=== PATIENT | female | born 1940 | race Caucasian/White ===

== ENCOUNTER 2017-01-31 19:32 | Inpatient (IN) | payer MEDICARE, MEDICAID ==
--- NOTE | 2017-01-31 20:29 | C.PDOC ---
History Of Present Illness 76 y/o female presents to ED with worsening congestion and cough for 1 week. Patient is speaking in full sentences and denies fever, chest pain, sob, n/v/d or any other complaints at this time. Time Seen by Provider: 01/31/17 20:28 Chief Complaint (Nursing): Cough, Cold, Congestion History Per: Patient History/Exam Limitations: no limitations Onset/Duration Of Symptoms: Days Current Symptoms Are (Timing): Still Present Severity: Mild Pain Scale Rating Of: 2 Reports Recently: Treated By A Physician Recent travel outside of the [place] States: No Additional History Per: Patient, Family Past Medical History Reviewed: Historical Data, Nursing Documentation, Vital Signs Vital Signs: Last Vital Signs Temp 98.6 F 01/31/17 19:52 Pulse 87 01/31/17 19:52 Resp 20 01/31/17 19:52 BP 127/68 01/31/17 19:52 Pulse Ox 96 01/31/17 21:19 - Medical History PMH: Arthritis, Diabetes, Deep Vein Thrombosis, Hypothyroidism, Rheumatoid Arthritis Surgical History: No Surg Hx Family History: States: No Known Family Hx - Social History Hx Alcohol Use: No Hx Substance Use: No - Immunization History Hx Tetanus Toxoid Vaccination: Yes Hx Influenza Vaccination: Yes Hx Pneumococcal Vaccination: Yes Review Of Systems Constitutional: Negative for: Fever, Chills Eyes: Negative for: Redness Cardiovascular: Negative for: Chest Pain Respiratory: Positive for: Cough. Negative for: Shortness of Breath Gastrointestinal: Negative for: Nausea, Vomiting, Diarrhea Skin: Negative for: Rash Neurological: Negative for: Weakness Psych: Negative for: Anxiety Physical Exam - Physical Exam Appears: Non-toxic, No Acute Distress Skin: Warm, Dry, No Rash Head: Normacephalic Eye(s): bilateral: Normal Inspection Oral Mucosa: Moist Neck: Supple Chest: Symmetrical Cardiovascular: Rhythm Regular Respiratory: No Rales, Rhonchi (scattered), Wheezing (bilateral) Gastrointestinal/Abdominal: Soft, No Tenderness, No Guarding, No Rebound Back: No CVA Tenderness Extremity: No Tenderness Extremity: Bilateral: Atraumatic, Normal Color And Temperature Neurological/Psych: Oriented x3, Normal Speech, Normal Cognition Gait: Steady ED Course And Treatment - Laboratory Results Result Diagrams: 01/31/17 20:39 01/31/17 20:39 ECG: Interpreted By Me, Viewed By Me ECG Rhythm: Sinus Rhythm (78), Nonspecific Changes O2 Sat by Pulse Oximetry: 96 (RA) Pulse Ox Interpretation: Normal - Radiology CXR: Interpreted by Me, Viewed By Me CXR Interpretation: Yes: Infiltrates (lll), Other (mild chf). No: Fracture, Pnemothorax Disposition Discussed With DrSandra: Byron Alexander Comment: accepted the pt on his service and took over the care at 9:39 PM Doctor Will See Patient In The: Hospital Counseled Patient/Family Regarding: Studies Performed, Diagnosis - Disposition Disposition: HOSPITALIZED Disposition Time: 20:28 Condition: FAIR Forms: RE2 (Urdu) - POA Present On Arrival: Poor Glycemic Control - Clinical Impression Clinical Impression: Pneumonia - Scribe Statement The provider has reviewed the documentation as recorded by the Scribe Vinh Sewell All medical record entries made by the Scribe were at my direction and personally dictated by me. I have reviewed the chart and agree that the record accurately reflects my personal performance of the history, physical exam, medical decision making, and the department course for this patient. I have also personally directed, reviewed, and agree with the discharge instructions and disposition. Decision To Admit - Pt Status Changed To: Hospital Disposition Of: Observation - . Bed Request Type: Regular Patient Diagnosis: Pneumonia
[2017-01-31] MEDS ORDERED: Sodium Chloride 0.9% 1,000 ML IV ONE (20:31)
[2017-01-31 20:45] LABS: BASO # 0.1 K/uL (0.0-0.2); BASO % 0.7 % (0.0-2.0); EOS # 4.6 K/uL (0.0-0.7); EOS % 35.7 % (0.0-4.0); HEMATOCRIT 35.5 % (34.0-47.0); LYMPH # 1.6 K/uL (1.0-4.3); LYMPH % 12.4 % (20.0-40.0); MEAN CELL VOLUME 83.5 fL (81.0-99.0); MEAN CORPUSCULAR HEMOGLOBIN 26.6 pg (27.0-31.0); MEAN CORPUSCULAR HGB CONC 31.9 g/dL (33.0-37.0); MEAN PLATELET VOLUME 8.9 fL (7.2-11.7); MONO # 0.8 K/uL (0.0-0.8); MONO % 6.2 % (0.0-10.0); PLATELET COUNT 213 K/uL (130-400); RED CELL DISTRIBUTION WIDTH 15.1 % (11.5-14.5); WHITE BLOOD COUNT 12.9 K/uL (4.8-10.8)
[2017-01-31 20:49] LABS: VENOUS BLOOD GAS BASE EXCESS 0.5 mmol/L (0.0-2.0); VENOUS BLOOD GAS PCO2 44 mmHg (40-60); VENOUS BLOOD PH 7.38 (7.32-7.43)
[2017-01-31 20:51] LABS: CHLORIDE 101 mmol/L (98-107)
[2017-01-31 20:52] LABS: POTASSIUM 3.8 mmol/L (3.6-5.2); SODIUM 134 mmol/L (132-148)
[2017-01-31] MEDS ORDERED: Sodium Chloride 0.9% 1,000 ML ONE (20:52)
[2017-01-31] MEDS ORDERED: Albuterol-Ipratrop 3 mg / 0.5 (3 ml) UD ONE ×2 (20:53→21:21)
[2017-01-31 20:54] LABS: ALB/GLOB RATIO 1.3 (1.0-2.1); AST/SGOT 16 U/L (14-36); BILIRUBIN,TOTAL 0.5 mg/dL (0.2-1.3); BLOOD UREA NITROGEN 10 mg/dL (7-17); CARBON DIOXIDE 24 mmol/L (22-30); GFR AFRICAN-AMERICAN > 60; TOTAL PROTEIN 6.7 g/dL (6.3-8.3)
[2017-01-31 20:55] LABS: ALKALINE PHOSPHATASE 52 U/L (38-126); ALT/SGPT 26 U/L (9-52); CALCIUM 9.1 mg/dl (8.6-10.4); GLUCOSE,RANDOM 164 mg/dL (65-105)
[2017-01-31] MEDS: Albuterol-Ipratrop 3 mg / 0.5 (3 ml) UD IH SCH ×3 (21:00→21:31)
[2017-01-31 21:03] LABS: RBC URINE < 1 /hpf (0-3); URINE BACTERIA RARE (<OCC); URINE BILIRUBIN NEGATIVE (NEGATIVE); URINE BLOOD NEGATIVE (NEGATIVE); URINE COLOR Straw (YELLOW); URINE GLUCOSE (UA) NORMAL (Normal); URINE KETONE NEGATIVE (NEGATIVE); URINE LEUKOCYTE ESTERASE NEG Leu/uL (Negative); URINE PROTEIN NEGATIVE (NEGATIVE); URINE UROBILINOGEN NORMAL mg/dL (0.2-1.0)
[2017-01-31] MEDS ORDERED: Piperacillin/Tazobact 3.375 gm 100 ML IVPB STA (21:36)
[2017-01-31] MEDS ORDERED: Piperacillin/Tazobact 3.375 gm 100 ML IVPB ONE (21:49)
--- NOTE | 2017-01-31 23:00 | CP.PCM.HP ---
History of Present Illness - History of Present Illness History of Present Illness: CC: cough, SOB x 1 week 76 y/o [place] female chronically sick, home bound with h/o COPD, OA, DM who lives with son and needs home aide presents to ED with worsening congestion and cough for 1 week. Patient is speaking in full sentences and denies fever, chest pain, sob, n/v/d or any other complaints at this time. Present on Admission - Present on Admission Any Indicators Present on Admission: Yes History of DVT/PE: Yes History of Uncontrolled Diabetes: Yes Review of Systems - Review of Systems Systems not reviewed;Unavailable: Acuity of Condition - Constitutional Constitutional: Fatigue, Lethargy - EENT Eyes: absent: As Per HPI, Blind Spots, Blurred Vision, Change in Vision, Decreased Night Vision, Diplopia, Discharge, Dry Eye, Exophthalmos, Floaters, Irritation, Itchy Eyes, Loss of Peripheral Vision, Pain, Photophobia, Requires Corrective Lenses, Sees Flashes, Spots in Vision, Tunnel Vision, Other Visual Disturbances, Loss of Vision, Other Ears: absent: As Per HPI, Decreased Hearing, Ear Discharge, Ear Pain, Tinnitus, Abnormal Hearing, Disequilibrium, Dizziness, Other Nose/Mouth/Throat: absent: As Per HPI, Epistaxis, Nasal Congestion, Nasal Discharge, Nasal Obstruction, Nasal Trauma, Nose Pain, Post Nasal Drip, Sinus Pain, Sinus Pressure, Bleeding Gums, Change in Voice, Dental Pain, Dry Mouth, Dysphagia, Halitosis, Hoarsness, Lip Swelling, Mouth Lesions, Mouth Pain, Odynophagia, Sore Throat, Throat Swelling, Tongue Swelling, Facial Pain, Neck Pain, Neck Mass, Other - Cardiovascular Cardiovascular: absent: As Per HPI, Acrocyanosis, Chest Pain, Chest Pain at Rest , Chest Pain with Activity, Claudication, Diaphoresis, Dyspnea, Dyspnea on Exertion, Edema, Irregular Heart Rhythm, Pain Radiating to Arm/Neck/Jaw, Leg Edema, Leg Ulcers, Lightheadedness, Orthopnea, Palpitations, Paroxysmal Nocturnal Dyspnea, Pedal Edema, Radiating Pain, Rapid Heart Rate, Slow Heart Rate, Syncope, Other - Respiratory Respiratory: Cough, Dyspnea, Dyspnea on Exertion - Gastrointestinal Gastrointestinal: Abdominal Pain. absent: As Per HPI, Belching, Bloating, Change in Bowel Habits, Change in Stool Character, Coffee Ground Emesis, Constipation, Cramping, Diarrhea, Dyspepsia, Dysphagia, Early Satiety, Excessive Flatus, Fecal Incontinence, Heartburn, Hematemesis, Hematochezia, Loose Stools, Melena, Nausea, Odynophagia, Temesmus, Vomiting, Other - Genitourinary Genitourinary: Flank Pain. absent: As Per HPI, Change in Urinary Stream, Difficulty Urinating, Dysuria, Hematuria, Pyuria, Nocturia, Urinary Incontinence , Urinary Frequency, Urinary Hesitance, Urinary Urgency, Voiding Freq/Small Amts , Freq UTI, Hx Renal/Bladder Calculi, Hx /Renal Surgery, Bladder Distension, Other - Musculoskeletal Musculoskeletal: Back Pain, Limited Range of Motion, Muscle Weakness, Neck Pain , Numbness, Radiating Pain into Limb - Integumentary Integumentary: absent: As Per HPI, Acne, Alopecia, Bleeding Lesions, Change in Hair, Change in Nails, Change in Pigmentation, Changing Lesions, Dry Skin, Erythema, Furuncle, Hirsutism, Lesions, New Lesions, Non-Healing Lesions, Photosensitivity, Pruritus, Rash, Skin Pain, Skin Ulcer, Sores, Striae, Swelling , Unusual Bruising, Wounds, Jaundice, Other Past Patient History - Infectious Disease Hx of Infectious Diseases: None - Past Social History Smoking Status: Never Smoked - CARDIAC Hx Hypotension: Yes - NEUROLOGICAL Other/Comment: Pinched Nerve - ENDOCRINE/METABOLIC Hx Hypothyroidism: Yes - HEMATOLOGICAL/ONCOLOGICAL Other/Comment: ITP - MUSCULOSKELETAL/RHEUMATOLOGICAL Hx Arthritis: Yes Hx Rheumatoid Arthritis: Yes - PSYCHIATRIC Hx Substance Use: No - SURGICAL HISTORY Hx Cataract Extraction: Yes - ANESTHESIA Hx Anesthesia: Yes Hx Anesthesia Reactions: No Meds Allergies/Adverse Reactions: Allergies Allergy/AdvReac Type Severity Reaction Status Date / Time No Known Allergies Allergy Verified 01/19/16 19:13 Physical Exam - Constitutional Appears: No Acute Distress - Head Exam Head Exam: ATRAUMATIC, NORMAL INSPECTION, NORMOCEPHALIC - Eye Exam Eye Exam: EOMI, Normal appearance, PERRL Pupil Exam: NORMAL ACCOMODATION, PERRL - Neck Exam Neck exam: Positive for: Normal Inspection - Respiratory Exam Respiratory Exam: Accessory Muscle Use, Decreased Breath Sounds, Respiratory Distress - Cardiovascular Exam Cardiovascular Exam: REGULAR RHYTHM - GI/Abdominal Exam GI & Abdominal Exam: Normal Bowel Sounds, Soft. absent: Tenderness - Rectal Exam Rectal Exam: Deferred - Skin Additional comments: brisue in anticubal fossa right due to rcent venipuncture Results - Vital Signs Recent Vital Signs: Last Vital Signs Temp 98.6 F 01/31/17 19:52 Pulse 87 01/31/17 19:52 Resp 20 01/31/17 19:52 BP 127/68 01/31/17 19:52 Pulse Ox 96 01/31/17 21:41 - Labs Result Diagrams: 01/31/17 20:39 01/31/17 20:39 Labs: Laboratory Results - last 24 hr 01/31/17 01/31/17 01/31/17 20:39 20:39 20:40 WBC 12.9 H RBC 4.25 Hgb 11.3 Hct 35.5 MCV 83.5 MCH 26.6 L MCHC 31.9 L RDW 15.1 H Plt Count 213 MPV 8.9 Neut % (Auto) 45.0 L Lymph % (Auto) 12.4 L [place] % (Auto) 6.2 Eos % (Auto) 35.7 H Baso % (Auto) 0.7 Neut # 5.8 Lymph # 1.6 [place] # 0.8 Eos # 4.6 H Baso # 0.1 pO2 52 VBG pH 7.38 VBG pCO2 44 VBG HCO3 25.0 VBG Total CO2 27.4 VBG O2 Sat (Calc) 92.3 H VBG Base Excess 0.5 VBG Potassium 3.6 Glucose 181 H Lactate 1.7 Sodium 134 136.0 Potassium 3.8 Chloride 101 103.0 Carbon Dioxide 24 Anion Gap 13 BUN 10 Creatinine 0.5 L Est GFR ( Amer) > 60 Est GFR (Non-Af Amer) > 60 Random Glucose 164 H Calcium 9.1 Total Bilirubin 0.5 AST 16 ALT 26 Alkaline Phosphatase 52 Total Protein 6.7 Albumin 3.8 Globulin 2.9 Albumin/Globulin Ratio 1.3 Venous Blood Potassium 3.6 Urine Color Urine Clarity Urine pH Ur Specific [place] Urine Protein Urine Glucose (UA) Urine Ketones Urine Blood Urine Nitrate Urine Bilirubin Urine Urobilinogen Ur Leukocyte Esterase Urine RBC (Auto) Ur Squamous Epith Cells Urine Bacteria 01/31/17 20:48 WBC RBC Hgb Hct MCV MCH MCHC RDW Plt Count MPV Neut % (Auto) Lymph % (Auto) [place] % (Auto) Eos % (Auto) Baso % (Auto) Neut # Lymph # [place] # Eos # Baso # pO2 VBG pH VBG pCO2 VBG HCO3 VBG Total CO2 VBG O2 Sat (Calc) VBG Base Excess VBG Potassium Glucose Lactate Sodium Potassium Chloride Carbon Dioxide Anion Gap BUN Creatinine Est GFR ( Amer) Est GFR (Non-Af Amer) Random Glucose Calcium Total Bilirubin AST ALT Alkaline Phosphatase Total Protein Albumin Globulin Albumin/Globulin Ratio Venous Blood Potassium Urine Color Straw Urine Clarity Clear Urine pH 6.0 Ur Specific [place] 1.003 Urine Protein Negative Urine Glucose (UA) Normal Urine Ketones Negative Urine Blood Negative Urine Nitrate Negative Urine Bilirubin Negative Urine Urobilinogen Normal Ur Leukocyte Esterase Neg Urine RBC (Auto) < 1 Ur Squamous Epith Cells < 1 Urine Bacteria Rare Assessment & Plan (1) Bronchial asthma Assessment and Plan: excerberation of asthama Status: Acute (2) Diabetes Status: Acute (3) Joint pain Status: Acute (4) DVT (deep venous thrombosis) Status: Acute
[2017-01-31 23:19] LABS: EOSINOPHIL 23 % (0-4); NEUTROPHIL 50 % (50-75); TOTAL CELLS COUNTED 100
[2017-01-31 23:20] LABS: LARGE PLATELETS PRESENT; SMUDGE CELLS PRESENT
[2017-02-01] MEDS: Levothyroxine 125 MCG TAB PO SCH (06:40)
[2017-02-01 06:59] LABS: INR 2.7
[2017-02-01] MEDS ORDERED: Albuterol 0.083% Inhal Sol (2.5 mg/3 mL) UD ONE (07:55)
--- NOTE | 2017-02-01 08:43 | RAD ---
PROCEDURE: CHEST RADIOGRAPH, 1 VIEW HISTORY: Shortness of breath COMPARISON: None available. FINDINGS: LUNGS: The lungs are well inflated. There is bibasilar atelectasis. PLEURA: No pneumothorax or pleural fluid seen. CARDIOVASCULAR: Normal. OSSEOUS STRUCTURES: No significant abnormalities. VISUALIZED UPPER ABDOMEN: Normal. OTHER FINDINGS: None. IMPRESSION: No active pulmonary disease.
[2017-02-01] MEDS ORDERED: (Novolin R) Insulin Human Regular 100 units/ml vial ONE ×2 (09:05→12:57)
[2017-02-01] MEDS: (Novolin R) Insulin Human Regular 100 units/ml vial SC SCH ×4 (09:05→22:35)
[2017-02-01] MEDS ORDERED: Enoxaparin 40 mg Syringe SC SCH (10:00)
[2017-02-01] MEDS: guaiFENesin 600 mg ER Tab PO SCH ×2 (11:18→18:55)
[2017-02-01] MEDS: Pantoprazole 40 mg EC Tab PO SCH (11:19)
[2017-02-01] MEDS: Albuterol 0.083% Inhal Sol (2.5 mg/3 mL) UD INH SCH ×3 (12:10→19:15)
[2017-02-01] MEDS: Azithromycin 500 MG in Sodium Chloride 0.9% 250 ML IVPB SCH (12:19)
[2017-02-01 18:25] LABS: DRAW SITE VENOUS; VENOUS BLOOD GAS PCO2 43 mmHg (40-60); VENOUS BLOOD PH 7.38 (7.32-7.43)
[2017-02-01] MEDS: guaiFENesin 200 mg/10 ml Syrup UD PO PRN ×2 (18:55→22:28)
[2017-02-01] MEDS: MethylPREDNISolone 40 mg Vial IVP SCH (22:28)
--- NOTE | 2017-02-01 22:31 | CP.PCM.PN ---
Subjective - Date & Time of Evaluation Date of Evaluation: 02/01/17 Time of Evaluation: 20:00 - Subjective Subjective: Pt seen and examined, still coughing, wheezing, on nebulizer treatment Objective - Vital Signs/Intake and Output Vital Signs (last 24 hours): Temp Pulse Resp BP Pulse Ox 98.1 F 94 H 20 123/74 95 02/01/17 16:29 02/01/17 16:29 02/01/17 16:29 02/01/17 16:29 02/01/17 16:29 - Medications Medications: Current Medications Albuterol Sulfate (Albuterol 0.083% Inhal Karen (2.5 Mg/3 Ml) Ud) 2.5 mg INH RQ6 [facility] Last Admin: 02/01/17 19:15 Dose: 2.5 mg Guaifenesin (Mucinex La) 600 mg PO BID [facility] Last Admin: 02/01/17 18:55 Dose: 600 mg Guaifenesin (Robitussin) 200 mg PO Q4H PRN PRN Reason: Cough and congestion Last Admin: 02/01/17 22:28 Dose: 200 mg Ceftriaxone Sodium 1 gm/ (Sodium Chloride) 100 mls @ 100 mls/hr IVPB DAILY [facility] Last Admin: 02/01/17 11:19 Dose: 100 mls/hr Azithromycin 500 mg/ Sodium (Chloride) 250 mls @ 250 mls/hr IVPB DAILY [facility] Last Admin: 02/01/17 12:19 Dose: 250 mls/hr Insulin Human Regular (Novolin R) 0 unit SC ACHS [facility] PRN Reason: Protocol Last Admin: 02/01/17 18:40 Dose: Not Given Levothyroxine Sodium (Synthroid) 125 mcg PO DAILY@0630 [facility] Last Admin: 02/01/17 06:40 Dose: 125 mcg Metformin HCl (Glucophage) 850 mg PO DAILY [facility] Last Admin: 02/01/17 11:18 Dose: Not Given Methylprednisolone (Solu-Medrol) 40 mg IVP Q12 [facility] Last Admin: 02/01/17 22:28 Dose: 40 mg Pantoprazole Sodium (Protonix Ec Tab) 40 mg PO DAILY [facility] Last Admin: 02/01/17 11:19 Dose: 40 mg Pneumococcal Polyvalent Vaccine (Pneumovax 23 Vaccine) 0.5 ml IM .ONCE ONE Stop: 02/03/17 10:01 - Labs Labs: 01/31/17 20:39 01/31/17 20:39 PT 31.7 SECONDS (9.7-12.2) H* 02/01/17 06:50 INR 2.7 02/01/17 06:50 - Constitutional Appears: No Acute Distress - Eye Exam Eye Exam: EOMI, Normal appearance, PERRL Pupil Exam: NORMAL ACCOMODATION, PERRL - Respiratory Exam Respiratory Exam: Accessory Muscle Use, Decreased Breath Sounds, Wheezes - Cardiovascular Exam Cardiovascular Exam: REGULAR RHYTHM, +S1, +S2. absent: Murmur Assessment and Plan (1) Degenerative joint disease Status: Acute (2) DVT (deep venous thrombosis) Status: Acute (3) Diabetes Status: Acute (4) Acute asthma exacerbation Status: Acute
[2017-02-02] MEDS: Albuterol 0.083% Inhal Sol (2.5 mg/3 mL) UD INH SCH ×5 (01:04→19:33)
[2017-02-02] MEDS: Levothyroxine 125 MCG TAB PO SCH (06:44)
[2017-02-02] MEDS: (Novolin R) Insulin Human Regular 100 units/ml vial SC SCH ×4 (07:30→21:26)
[2017-02-02] MEDS: MethylPREDNISolone 40 mg Vial IVP SCH ×2 (09:46→21:29)
[2017-02-02] MEDS: Pantoprazole 40 mg EC Tab PO SCH (09:46)
[2017-02-02] MEDS: guaiFENesin 600 mg ER Tab PO SCH ×2 (09:46→17:45)
[2017-02-02] MEDS: Azithromycin 500 MG in Sodium Chloride 0.9% 250 ML IVPB SCH (09:48)
[2017-02-02] MEDS: guaiFENesin 200 mg/10 ml Syrup UD PO PRN (10:06)
--- NOTE | 2017-02-02 22:15 | CP.PCM.PN ---
Subjective - Date & Time of Evaluation Date of Evaluation: 02/02/17 Time of Evaluation: 21:40 - Subjective Subjective: pt seen and examined, is coughing and wheezing Objective - Vital Signs/Intake and Output Vital Signs (last 24 hours): Temp Pulse Resp BP Pulse Ox 98 F 81 20 137/75 98 02/02/17 15:35 02/02/17 15:35 02/02/17 15:35 02/02/17 15:35 02/02/17 15:35 Intake and Output: 02/02/17 02/03/17 18:59 06:59 Intake Total 600 Balance 600 - Medications Medications: Current Medications Albuterol Sulfate (Albuterol 0.083% Inhal Karen (2.5 Mg/3 Ml) Ud) 2.5 mg INH RQ6 [facility] Last Admin: 02/02/17 19:33 Dose: 2.5 mg Guaifenesin (Mucinex La) 600 mg PO BID [facility] Last Admin: 02/02/17 17:45 Dose: 600 mg Guaifenesin (Robitussin) 200 mg PO Q4H PRN PRN Reason: Cough and congestion Last Admin: 02/02/17 10:06 Dose: 200 mg Ceftriaxone Sodium 1 gm/ (Sodium Chloride) 100 mls @ 100 mls/hr IVPB DAILY [facility] Last Admin: 02/02/17 09:46 Dose: 100 mls/hr Azithromycin 500 mg/ Sodium (Chloride) 250 mls @ 250 mls/hr IVPB DAILY [facility] Last Admin: 02/02/17 09:48 Dose: 250 mls/hr Insulin Human Regular (Novolin R) 0 unit SC ACHS [facility] PRN Reason: Protocol Last Admin: 02/02/17 21:26 Dose: Not Given Levothyroxine Sodium (Synthroid) 125 mcg PO DAILY@0630 [facility] Last Admin: 02/02/17 06:44 Dose: 125 mcg Metformin HCl (Glucophage) 850 mg PO BIDCC [facility] Methylprednisolone (Solu-Medrol) 40 mg IVP Q12 [facility] Last Admin: 02/02/17 21:29 Dose: 40 mg Pantoprazole Sodium (Protonix Ec Tab) 40 mg PO DAILY [facility] Last Admin: 02/02/17 09:46 Dose: 40 mg Pneumococcal Polyvalent Vaccine (Pneumovax 23 Vaccine) 0.5 ml IM .ONCE ONE Stop: 02/03/17 10:01 - Labs Labs: 09/19/17 20:39 01/31/17 20:39 PT 47.2 SECONDS (9.7-12.2) H* D 02/02/17 07:10 INR 4.0 D 02/02/17 07:10 - Constitutional Appears: No Acute Distress - Head Exam Head Exam: ATRAUMATIC, NORMAL INSPECTION, NORMOCEPHALIC - Eye Exam Eye Exam: EOMI, Normal appearance, PERRL Pupil Exam: NORMAL ACCOMODATION, PERRL - Respiratory Exam Respiratory Exam: Clear to Ausculation Bilateral, NORMAL BREATHING PATTERN - Cardiovascular Exam Cardiovascular Exam: REGULAR RHYTHM, +S1, +S2. absent: Murmur - GI/Abdominal Exam GI & Abdominal Exam: Soft, Normal Bowel Sounds. absent: Tenderness Assessment and Plan (1) Degenerative joint disease Status: Acute (2) DVT (deep venous thrombosis) Status: Acute (3) Diabetes Status: Acute (4) Acute asthma exacerbation Status: Acute
[2017-02-03] MEDS: Albuterol 0.083% Inhal Sol (2.5 mg/3 mL) UD INH SCH ×4 (01:13→19:50)
[2017-02-03] MEDS: Levothyroxine 125 MCG TAB PO SCH (05:52)
[2017-02-03 08:11] LABS: INR 3.7
[2017-02-03] MEDS: Pantoprazole 40 mg EC Tab PO SCH (09:44)
[2017-02-03] MEDS: guaiFENesin 600 mg ER Tab PO SCH ×2 (09:44→17:48)
[2017-02-03] MEDS: MethylPREDNISolone 40 mg Vial IVP SCH ×2 (09:46→21:38)
[2017-02-03] MEDS: (Novolin R) Insulin Human Regular 100 units/ml vial SC SCH ×4 (09:46→21:35)
[2017-02-03] MEDS ORDERED: Pneumococcal 23-Valent Vaccine IM ONE (10:00)
[2017-02-03] MEDS: Azithromycin 500 MG in Sodium Chloride 0.9% 250 ML IVPB SCH (10:57)
--- NOTE | 2017-02-03 12:15 | CON ---
DATE: HISTORY OF PRESENT ILLNESS: Ms. Gutierrez is a 76-year-old lady with multiple medical issues, got admitted with shortness of breath and dyspnea. The patient has been taking multiple medications at home, one of the medications she is taking is warfarin for her deep venous thrombosis and recently, the patient was found to have higher INR and today her INR is around 4. The patient denies any bleeding, bruises, or hemorrhages. The patient denies any chest pain. The patient denies any headaches, nausea, vomiting, abdominal pain, or leg swelling. REVIEW OF SYSTEMS: Unremarkable and as above. PHYSICAL EXAMINATION: VITAL SIGNS: The patient is afebrile, pulse is 98, and respirations are 16. HEENT: Unremarkable and anicteric. NECK: Supple neck. No JVD. No adenopathy. CHEST: Bilateral air. No rales or rhonchi. ABDOMEN: Soft and nontender. Bowel sounds present. No palpable hepatosplenomegaly. EXTREMITIES: No pedal edema. No clubbing. No cyanosis. Has some calf tenderness present. NEUROLOGIC: Alert, awake, oriented, and nonfocal. ASSESSMENT AND PLAN: Ms. Sahni is a 76-year-old lady with multiple medical morbidities, also has a history of deep venous thrombosis, now found to have INR around 4. The patient's warfarin or Coumadin is on hold because of the high INR. There is no bleeding or no hemorrhages. I recommended to give her 5 mg of vitamin K p.o., the orders were given to the nurses. The patient's CBC was unremarkable with normal hemoglobin, platelet count, and WBC. The patient's chest x-ray was unremarkable and negative. We will further evaluate the record as to when was her original deep venous thrombosis and we will also find out as to how, why the patient was placed on Coumadin. The issues will be discussed with Dr. Alexander in that regard, then we will make the further recommendations about the duration of anticoagulation. We will also review whether the patient will need any further workup to rule out hypercoagulable state and states there is a old record available, we will review it. Otherwise, we will just recommend that the patient to undergo the general cancer screening in terms of routine screening colonoscopies and mammogram and other things. I instructed the patient to have outpatient follow up after the discharge. The patient understood the issues well and we will follow up on that. Donato Lai MD
[2017-02-03] MEDS: guaiFENesin 200 mg/10 ml Syrup UD PO PRN (13:30)
[2017-02-03] MEDS ORDERED: POLYETHYLENE GLYCOL 3350 17 GM/Dose PACKET PO ONE (16:00)
[2017-02-03] MEDS: Promethazine/Cod 6.25mg-10mg/5ml Syr UD PO SCH (19:53)
--- NOTE | 2017-02-03 23:35 | CP.PCM.PN ---
Subjective - Date & Time of Evaluation Date of Evaluation: 02/03/17 Time of Evaluation: 20:00 - Subjective Subjective: Pt has less cough, less sob, less wheezing Objective - Vital Signs/Intake and Output Vital Signs (last 24 hours): Temp Pulse Resp BP Pulse Ox 97.9 F 61 20 128/67 97 02/03/17 15:21 02/03/17 15:21 02/03/17 15:21 02/03/17 15:21 02/03/17 15:21 Intake and Output: 02/03/17 02/04/17 18:59 06:59 Intake Total 1050 100 Balance 1050 100 - Medications Medications: Current Medications Albuterol Sulfate (Albuterol 0.083% Inhal Karen (2.5 Mg/3 Ml) Ud) 2.5 mg INH RQ6 [facility] Last Admin: 02/03/17 19:50 Dose: 2.5 mg Guaifenesin (Robitussin) 200 mg PO Q4H PRN PRN Reason: Cough and congestion Last Admin: 02/03/17 13:30 Dose: 200 mg Ceftriaxone Sodium 1 gm/ (Sodium Chloride) 100 mls @ 100 mls/hr IVPB DAILY [facility] Last Admin: 02/03/17 09:44 Dose: 100 mls/hr Azithromycin 500 mg/ Sodium (Chloride) 250 mls @ 250 mls/hr IVPB DAILY [facility] Last Admin: 02/03/17 10:57 Dose: 250 mls/hr Insulin Human Regular (Novolin R) 0 unit SC ACHS [facility] PRN Reason: Protocol Last Admin: 02/03/17 21:35 Dose: Not Given Levothyroxine Sodium (Synthroid) 125 mcg PO DAILY@0630 [facility] Last Admin: 02/03/17 05:52 Dose: 125 mcg Loratadine (Claritin) 10 mg PO DAILY [facility] Metformin HCl (Glucophage) 850 mg PO BIDCC [facility] Last Admin: 02/03/17 16:46 Dose: 850 mg Methylprednisolone (Solu-Medrol) 40 mg IVP Q12 [facility] Last Admin: 02/03/17 21:38 Dose: 40 mg Montelukast Sodium (Singulair) 10 mg PO HS [facility] Last Admin: 02/03/17 21:39 Dose: 10 mg Pantoprazole Sodium (Protonix Ec Tab) 40 mg PO DAILY [facility] Last Admin: 02/03/17 09:44 Dose: 40 mg Pneumococcal Polyvalent Vaccine (Pneumovax 23 Vaccine) 0.5 ml IM .ONCE ONE Stop: 02/05/17 10:01 Promethazine HCl/Codeine (Phenergan/Codeine Oral Syrup) 5 ml PO Q4 [facility] Last Admin: 02/03/17 19:53 Dose: 5 ml Fluticasone/Salmeterol (Advair Diskus 250/50) 1 puff INH RQ12 [facility] - Labs Labs: 01/31/17 20:39 01/31/17 20:39 PT 44.6 SECONDS (9.7-12.2) H* 02/03/17 08:01 INR 3.7 02/03/17 08:01 - Constitutional Appears: No Acute Distress - Head Exam Head Exam: ATRAUMATIC, NORMAL INSPECTION, NORMOCEPHALIC - Eye Exam Eye Exam: EOMI, Normal appearance, PERRL Pupil Exam: NORMAL ACCOMODATION, PERRL - Respiratory Exam Respiratory Exam: Decreased Breath Sounds, Rales, Rhonchi - Cardiovascular Exam Cardiovascular Exam: REGULAR RHYTHM, +S1, +S2. absent: Murmur - GI/Abdominal Exam GI & Abdominal Exam: Soft, Normal Bowel Sounds. absent: Tenderness Assessment and Plan (1) Degenerative joint disease Status: Acute (2) DVT (deep venous thrombosis) Status: Acute (3) Diabetes Status: Acute (4) Acute asthma exacerbation Status: Acute
[2017-02-04] MEDS: Albuterol 0.083% Inhal Sol (2.5 mg/3 mL) UD INH SCH ×4 (01:10→20:21)
[2017-02-04] MEDS: Promethazine/Cod 6.25mg-10mg/5ml Syr UD PO SCH ×6 (05:38→20:34)
[2017-02-04] MEDS: Levothyroxine 125 MCG TAB PO SCH (06:44)
[2017-02-04 07:42] LABS: INR 1.3
[2017-02-04] MEDS: Fluticasone-Salmeterol 250-50mcg Diskus INH SCH ×2 (07:57→20:20)
[2017-02-04] MEDS: (Novolin R) Insulin Human Regular 100 units/ml vial SC SCH ×4 (08:25→21:20)
--- NOTE | 2017-02-04 09:36 | CARD ---
APPROVED REPORT EKG Measurement Heart [id number] <Conclusion> Normal sinus rhythm Left axis deviation Minimal voltage criteria for LVH, may be normal variant Abnormal ECG
[2017-02-04] MEDS: Pantoprazole 40 mg EC Tab PO SCH (09:52)
[2017-02-04] MEDS: Azithromycin 500 MG in Sodium Chloride 0.9% 250 ML IVPB SCH (09:53)
[2017-02-04] MEDS: MethylPREDNISolone 40 mg Vial IVP SCH ×2 (10:00→21:40)
[2017-02-05] MEDS: Promethazine/Cod 6.25mg-10mg/5ml Syr UD PO SCH ×3 (00:46→09:26)
[2017-02-05] MEDS: Albuterol 0.083% Inhal Sol (2.5 mg/3 mL) UD INH SCH ×4 (01:30→19:04)
[2017-02-05] MEDS: Levothyroxine 125 MCG TAB PO SCH (05:35)
[2017-02-05 08:19] LABS: HEMATOCRIT 35.8 % (34.0-47.0); MEAN CELL VOLUME 84.6 fL (81.0-99.0); MEAN CORPUSCULAR HEMOGLOBIN 27.3 pg (27.0-31.0); MEAN CORPUSCULAR HGB CONC 32.3 g/dL (33.0-37.0); RED CELL DISTRIBUTION WIDTH 15.3 % (11.5-14.5); WHITE BLOOD COUNT 9.9 K/uL (4.8-10.8)
[2017-02-05 08:25] LABS: INR 1.2
[2017-02-05 08:33] LABS: CHLORIDE 97 mmol/L (98-107); POTASSIUM 4.2 mmol/L (3.6-5.2); SODIUM 137 mmol/L (132-148)
[2017-02-05] MEDS: Fluticasone-Salmeterol 250-50mcg Diskus INH SCH ×2 (08:33→23:08)
[2017-02-05 08:36] LABS: BLOOD UREA NITROGEN 13 mg/dL (7-17); CALCIUM 9.6 mg/dl (8.6-10.4); CARBON DIOXIDE 30 mmol/L (22-30); GFR AFRICAN-AMERICAN > 60; GLUCOSE,RANDOM 199 mg/dL (65-105)
[2017-02-05] MEDS: MethylPREDNISolone 40 mg Vial IVP SCH ×2 (09:26→21:53)
[2017-02-05] MEDS: (Novolin R) Insulin Human Regular 100 units/ml vial SC SCH ×4 (09:26→21:50)
[2017-02-05] MEDS: Pantoprazole 40 mg EC Tab PO SCH (09:26)
[2017-02-05] MEDS ORDERED: Pneumococcal 23-Valent Vaccine IM ONE (10:00)
--- NOTE | 2017-02-05 10:21 | CP.PCM.PN ---
Subjective - Date & Time of Evaluation Date of Evaluation: 02/05/17 Time of Evaluation: 10:00 - Subjective Subjective: Pt seen and examined, cough and wheezing has improved denies any shortness of breath Objective - Vital Signs/Intake and Output Vital Signs (last 24 hours): Temp Pulse Resp BP Pulse Ox 97.8 F 67 20 135/74 95 02/05/17 07:39 02/05/17 07:39 02/05/17 07:39 02/05/17 07:39 02/05/17 07:39 Intake and Output: 02/05/17 02/05/17 06:59 18:59 Intake Total 240 Balance 240 - Medications Medications: Current Medications Albuterol Sulfate (Albuterol 0.083% Inhal Karen (2.5 Mg/3 Ml) Ud) 2.5 mg INH RQ6 [facility] Last Admin: 02/05/17 08:33 Dose: 2.5 mg Guaifenesin (Robitussin) 200 mg PO Q4H PRN PRN Reason: Cough and congestion Last Admin: 02/03/17 13:30 Dose: 200 mg Ceftriaxone Sodium 1 gm/ (Sodium Chloride) 100 mls @ 100 mls/hr IVPB DAILY [facility] Last Admin: 02/04/17 09:52 Dose: 100 mls/hr Insulin Human Regular (Novolin R) 0 unit SC ACHS [facility] PRN Reason: Protocol Last Admin: 02/05/17 09:26 Dose: 3 unit Levothyroxine Sodium (Synthroid) 125 mcg PO DAILY@0630 [facility] Last Admin: 02/05/17 05:35 Dose: 125 mcg Loratadine (Claritin) 10 mg PO DAILY [facility] Last Admin: 02/05/17 09:26 Dose: 10 mg Metformin HCl (Glucophage) 850 mg PO BIDCC [facility] Last Admin: 02/05/17 09:26 Dose: 850 mg Methylprednisolone (Solu-Medrol) 40 mg IVP Q12 [facility] Last Admin: 02/05/17 09:26 Dose: 40 mg Montelukast Sodium (Singulair) 10 mg PO HS [facility] Last Admin: 02/04/17 21:40 Dose: 10 mg Pantoprazole Sodium (Protonix Ec Tab) 40 mg PO DAILY [facility] Last Admin: 02/05/17 09:26 Dose: 40 mg Promethazine HCl/Codeine (Phenergan/Codeine Oral Syrup) 5 ml PO Q4 [facility] Last Admin: 02/05/17 09:26 Dose: Not Given Fluticasone/Salmeterol (Advair Diskus 250/50) 1 puff INH RQ12 [facility] Last Admin: 02/05/17 08:33 Dose: 1 puff - Labs Labs: 02/05/17 08:08 02/05/17 08:08 PT 14.0 SECONDS (9.7-12.2) H 02/05/17 08:08 INR 1.2 02/05/17 08:08 - Constitutional Appears: No Acute Distress - Head Exam Head Exam: ATRAUMATIC, NORMAL INSPECTION, NORMOCEPHALIC - Respiratory Exam Respiratory Exam: Clear to Ausculation Bilateral, NORMAL BREATHING PATTERN - Cardiovascular Exam Cardiovascular Exam: REGULAR RHYTHM, +S1, +S2. absent: Murmur Assessment and Plan (1) Degenerative joint disease Status: Acute (2) DVT (deep venous thrombosis) Status: Acute (3) Diabetes Status: Acute (4) Acute asthma exacerbation Status: Acute
--- NOTE | 2017-02-05 10:21 | CP.PCM.PN ---
Subjective - Date & Time of Evaluation Date of Evaluation: 02/04/17 Time of Evaluation: 20:00 - Subjective Subjective: Pt is feeling better, less cough, less conngestion Objective - Vital Signs/Intake and Output Vital Signs (last 24 hours): Temp Pulse Resp BP Pulse Ox 97.8 F 67 20 135/74 95 02/05/17 07:39 02/05/17 07:39 02/05/17 07:39 02/05/17 07:39 02/05/17 07:39 Intake and Output: 02/05/17 02/05/17 06:59 18:59 Intake Total 240 Balance 240 - Medications Medications: Current Medications Albuterol Sulfate (Albuterol 0.083% Inhal Karen (2.5 Mg/3 Ml) Ud) 2.5 mg INH RQ6 [facility] Last Admin: 02/05/17 08:33 Dose: 2.5 mg Guaifenesin (Robitussin) 200 mg PO Q4H PRN PRN Reason: Cough and congestion Last Admin: 02/03/17 13:30 Dose: 200 mg Ceftriaxone Sodium 1 gm/ (Sodium Chloride) 100 mls @ 100 mls/hr IVPB DAILY [facility] Last Admin: 02/04/17 09:52 Dose: 100 mls/hr Insulin Human Regular (Novolin R) 0 unit SC ACHS [facility] PRN Reason: Protocol Last Admin: 02/05/17 09:26 Dose: 3 unit Levothyroxine Sodium (Synthroid) 125 mcg PO DAILY@0630 [facility] Last Admin: 02/05/17 05:35 Dose: 125 mcg Loratadine (Claritin) 10 mg PO DAILY [facility] Last Admin: 02/05/17 09:26 Dose: 10 mg Metformin HCl (Glucophage) 850 mg PO BIDCC [facility] Last Admin: 02/05/17 09:26 Dose: 850 mg Methylprednisolone (Solu-Medrol) 40 mg IVP Q12 [facility] Last Admin: 02/05/17 09:26 Dose: 40 mg Montelukast Sodium (Singulair) 10 mg PO HS [facility] Last Admin: 02/04/17 21:40 Dose: 10 mg Pantoprazole Sodium (Protonix Ec Tab) 40 mg PO DAILY [facility] Last Admin: 02/05/17 09:26 Dose: 40 mg Promethazine HCl/Codeine (Phenergan/Codeine Oral Syrup) 5 ml PO Q4 [facility] Last Admin: 02/05/17 09:26 Dose: Not Given Fluticasone/Salmeterol (Advair Diskus 250/50) 1 puff INH RQ12 [facility] Last Admin: 02/05/17 08:33 Dose: 1 puff - Labs Labs: 02/05/17 08:08 02/05/17 08:08 PT 14.0 SECONDS (9.7-12.2) H 02/05/17 08:08 INR 1.2 02/05/17 08:08 - Constitutional Appears: No Acute Distress - Head Exam Head Exam: ATRAUMATIC, NORMAL INSPECTION, NORMOCEPHALIC - Eye Exam Eye Exam: EOMI, Normal appearance, PERRL Pupil Exam: NORMAL ACCOMODATION, PERRL - ENT Exam ENT Exam: Mucous Membranes Moist, Normal Exam - Neck Exam Neck Exam: Full ROM, Normal Inspection. absent: Lymphadenopathy - Respiratory Exam Respiratory Exam: Clear to Ausculation Bilateral, NORMAL BREATHING PATTERN - Cardiovascular Exam Cardiovascular Exam: REGULAR RHYTHM, +S1, +S2. absent: Murmur - GI/Abdominal Exam GI & Abdominal Exam: Soft, Normal Bowel Sounds. absent: Tenderness Assessment and Plan (1) Degenerative joint disease Status: Acute (2) DVT (deep venous thrombosis) Status: Acute (3) Diabetes Status: Acute (4) Acute asthma exacerbation Assessment & Plan: medical managmnet, nebulizer, oxygen, salmedrol Status: Acute
[2017-02-05] MEDS: Promethazine/Cod 6.25mg-10mg/5ml Syr UD PO PRN (16:02)
[2017-02-05 16:49] LABS: INR 1.3
[2017-02-05] MEDS: Aluminum Hydroxide/Magnesium Hydroxide Susp (30 mL) PO PRN (17:02)
[2017-02-06] MEDS: Albuterol 0.083% Inhal Sol (2.5 mg/3 mL) UD INH SCH ×2 (01:32→07:47)
[2017-02-06] MEDS: Levothyroxine 125 MCG TAB PO SCH (05:32)
[2017-02-06] MEDS: Fluticasone-Salmeterol 250-50mcg Diskus INH SCH ×2 (07:46→20:14)
[2017-02-06] MEDS: (Novolin R) Insulin Human Regular 100 units/ml vial SC SCH ×4 (09:30→21:43)
[2017-02-06] MEDS: MethylPREDNISolone 40 mg Vial IVP SCH (09:52)
[2017-02-06] MEDS: Pantoprazole 40 mg EC Tab PO SCH (09:52)
--- NOTE | 2017-02-06 11:42 | VASCLAB ---
PROCEDURE: Lower Extremity Venous Duplex Exam. HISTORY: dvt PRIORS: None. TECHNIQUE: Bilateral common femoral, femoral, popliteal and posterior tibial, peroneal and great saphenous veins were evaluated. Flow was assessed with color Doppler, compressibility, assessment of phasic flow and augmentation response. Report prepared by SHANKAR Bean, RVT FINDINGS: RIGHT: 1. Common Femoral Vein: 1.1. Compressibility - Fully compressible: Thrombus - None : Flow - Phasic: Augmentation -Normal: Reflux - None. 2. Femoral Vein: 2.1. Compressibility - Fully compressible: Thrombus - None : Flow - Phasic: Augmentation -Normal: Reflux - None. 3. Popliteal Vein: 3.1. Compressibility - Fully compressible: Thrombus - None : Flow - Phasic: Augmentation -Normal: Reflux - None. 4. Posterior Tibial Vein: 4.1. Compressibility - Fully compressible: Thrombus - None: Flow - Phasic: Augmentation -Normal: Reflux - None. 5. Peroneal Vein: 5.1. Compressibility - Fully compressible: Thrombus - None: Flow - Phasic: Augmentation -Normal: Reflux - None. 6. Great Saphenous Vein: 6.1. Compressibility - Fully compressible: Thrombus - None: Flow - Phasic: Augmentation - Normal: Reflux - None. LEFT: 1. Common Femoral Vein: 1.1. Compressibility - Fully compressible: Thrombus - None: Flow - Phasic: Augmentation -Normal: Reflux - None. 2. Femoral Vein: 2.1. Compressibility - Fully compressible: Thrombus - None: Flow - Phasic: Augmentation -Normal: Reflux - None. 3. Popliteal Vein: 3.1. Compressibility - Fully compressible: Thrombus - None : Flow - Phasic: Augmentation -Normal: Reflux - None. 4. Posterior Tibial Vein: 4.1. Compressibility - Fully compressible: Thrombus - None: Flow - Phasic: Augmentation -Normal: Reflux - None. 5. Peroneal Vein: 5.1. Compressibility - Fully compressible: Thrombus - None: Flow - Phasic: Augmentation -Normal: Reflux - None. 6. Great Saphenous Vein: 6.1. Compressibility - Fully compressible: Thrombus - None: Flow - Phasic: Augmentation - Normal: Reflux - None. OTHER FINDINGS: Right: None significant. Left: None significant. IMPRESSION: Right: No evidence of deep or superficial vein thrombosis of the right lower extremity. Normal valve function noted of the right side. Left: No evidence of deep or superficial vein thrombosis of the left lower extremity. Normal valve function noted of the left side.
[2017-02-06] MEDS: Aluminum Hydroxide/Magnesium Hydroxide Susp (30 mL) PO PRN (13:23)
[2017-02-06] MEDS: Promethazine/Cod 6.25mg-10mg/5ml Syr UD PO PRN (16:39)
[2017-02-06 18:32] LABS: INR 1.6
--- NOTE | 2017-02-06 18:51 | CP.PCM.CON ---
History of Present Illness - History of Present Illness History of Present Illness: Pt seen and examined 76 y/o female with PMHx of asthma/COPD is admitted for COPD exacerbation. Pt reports persistent symptoms that are improving slowly. Pt also reports symptoms of persistent cough that has not resolved for many months. She is sitting comfortably in bed. Denies, fever, chills, CP or abdominal pain. Review of Systems - Review of Systems All systems: reviewed and no additional remarkable complaints except (as mentioned in HPI) Past Patient History - Infectious Disease Hx of Infectious Diseases: None - Past Medical History & Family History Past Medical History?: Yes - Past Social History Smoking Status: Never Smoked - CARDIAC Hx Hypotension: Yes - NEUROLOGICAL Other/Comment: Pinched Nerve - ENDOCRINE/METABOLIC Hx Hypothyroidism: Yes - HEMATOLOGICAL/ONCOLOGICAL Other/Comment: ITP - MUSCULOSKELETAL/RHEUMATOLOGICAL Hx Arthritis: Yes Hx Rheumatoid Arthritis: Yes - PSYCHIATRIC Hx Substance Use: No - SURGICAL HISTORY Hx Cataract Extraction: Yes - ANESTHESIA Hx Anesthesia: Yes Hx Anesthesia Reactions: No Meds Allergies/Adverse Reactions: Allergies Allergy/AdvReac Type Severity Reaction Status Date / Time No Known Allergies Allergy Verified 01/19/16 19:13 - Medications Medications: Current Medications Acetylcysteine (Acetylcysteine 20%) 4 ml INH Q6H [facility] Al Hydrox/Mg Hydrox/Simethicone (Maalox 30 Ml) 30 ml PO TID PRN PRN Reason: Indigestion / Heartburn Last Admin: 02/06/17 13:23 Dose: 30 ml Guaifenesin (Robitussin) 200 mg PO Q4H PRN PRN Reason: Cough and congestion Last Admin: 02/03/17 13:30 Dose: 200 mg Insulin Human Regular (Novolin R) 0 unit SC ACHS [facility] PRN Reason: Protocol Last Admin: 02/06/17 16:49 Dose: 3 unit Levothyroxine Sodium (Synthroid) 125 mcg PO DAILY@0630 [facility] Last Admin: 02/06/17 05:32 Dose: 125 mcg Loratadine (Claritin) 10 mg PO DAILY [facility] Last Admin: 02/06/17 09:52 Dose: 10 mg Metformin HCl (Glucophage) 850 mg PO BIDCC [facility] Last Admin: 02/06/17 16:37 Dose: 850 mg Methylprednisolone (Solu-Medrol) 40 mg IVP DAILY [facility] Montelukast Sodium (Singulair) 10 mg PO HS [facility] Last Admin: 02/05/17 21:53 Dose: 10 mg Pantoprazole Sodium (Protonix Ec Tab) 40 mg PO DAILY [facility] Last Admin: 02/06/17 09:52 Dose: 40 mg Promethazine HCl/Codeine (Phenergan/Codeine Oral Syrup) 5 ml PO Q4 PRN PRN Reason: Cough Last Admin: 02/06/17 16:39 Dose: 5 ml Fluticasone/Salmeterol (Advair Diskus 250/50) 1 puff INH RQ12 [facility] Last Admin: 02/06/17 07:46 Dose: 1 puff Warfarin Sodium (Coumadin) 4 mg PO 1800 [facility] Stop: 02/06/17 18:01 Physical Exam - Head Exam Head Exam: NORMAL INSPECTION - Eye Exam Eye Exam: Normal appearance - ENT Exam ENT Exam: Mucous Membranes Moist - Respiratory Exam Respiratory Exam: Rhonchi - Cardiovascular Exam Cardiovascular Exam: REGULAR RHYTHM, +S1, +S2 - GI/Abdominal Exam GI & Abdominal Exam: Normal Bowel Sounds, Soft - Extremities Exam Extremities exam: Positive for: pedal edema - Neurological Exam Neurological exam: Alert, Oriented x3 - Psychiatric Exam Psychiatric exam: Normal Affect, Normal Mood Results - Vital Signs Recent Vital Signs: Last Vital Signs Temp 97.5 F L 02/06/17 16:30 Pulse 91 H 02/06/17 16:30 Resp 20 02/06/17 16:30 BP 148/76 02/06/17 16:30 Pulse Ox 98 02/06/17 16:30 - Labs Result Diagrams: 02/05/17 08:08 02/05/17 08:08 Labs: Laboratory Results - last 24 hr 02/05/17 02/06/17 02/06/17 20:59 06:27 11:01 PT INR POC Glucose (mg/dL) 268 H 303 H 281 H 02/06/17 02/06/17 16:34 18:24 PT 19.0 H INR 1.6 POC Glucose (mg/dL) 292 H Assessment & Plan - Assessment and Plan (Free Text) Assessment: Asthma Exacerbation Persistent Cough DM Hypothyroidism CXR with no acute disease Continue Advair Bronchodilators O2 supplementation Continue IV Solumedrol CT chest without contrast DVT/GI prophalaxis
[2017-02-06] MEDS: Acetylcysteine 20% Inhal Soln (4ml) INH SCH (20:13)
[2017-02-06] MEDS: Promethazine/Cod 6.25mg-10mg/5ml Syr UD PO SCH (21:44)
--- NOTE | 2017-02-06 22:02 | CARD ---
APPROVED REPORT EKG Measurement Heart [id number] AR 170P [id number] <Conclusion> Suspect arm lead reversal, interpretation assumes no reversal Normal sinus rhythm Lateral infarct, age undetermined T wave abnormality, consider inferior ischemia Abnormal ECG
--- NOTE | 2017-02-06 22:05 | CP.PCM.PN ---
Subjective - Date & Time of Evaluation Date of Evaluation: 02/06/17 Time of Evaluation: 21:00 - Subjective Subjective: Pt seen and examined, she started having cough , congestion, sob,and wheezing again. she developed pain in LUQ, joint pain, knee pain. Pt is more anxious Objective - Vital Signs/Intake and Output Vital Signs (last 24 hours): Temp Pulse Resp BP Pulse Ox 97.5 F L 91 H 20 148/76 98 02/06/17 16:30 02/06/17 16:30 02/06/17 16:30 02/06/17 16:30 02/06/17 16:30 Intake and Output: 02/06/17 02/07/17 18:59 06:59 Intake Total 940 200 Balance 940 200 - Medications Medications: Current Medications Acetylcysteine (Acetylcysteine 20%) 4 ml INH RQ6 [facility] Last Admin: 02/06/17 20:13 Dose: Not Given Al Hydrox/Mg Hydrox/Simethicone (Maalox 30 Ml) 30 ml PO TID PRN PRN Reason: Indigestion / Heartburn Last Admin: 02/06/17 13:23 Dose: 30 ml Guaifenesin (Robitussin) 200 mg PO Q4H PRN PRN Reason: Cough and congestion Last Admin: 02/03/17 13:30 Dose: 200 mg Insulin Human Regular (Novolin R) 0 unit SC ACHS [facility] PRN Reason: Protocol Last Admin: 02/06/17 21:43 Dose: Not Given Levothyroxine Sodium (Synthroid) 125 mcg PO DAILY@0630 [facility] Last Admin: 02/06/17 05:32 Dose: 125 mcg Loratadine (Claritin) 10 mg PO DAILY [facility] Last Admin: 02/06/17 09:52 Dose: 10 mg Metformin HCl (Glucophage) 850 mg PO BIDCC [facility] Last Admin: 02/06/17 16:37 Dose: 850 mg Methylprednisolone (Solu-Medrol) 40 mg IVP DAILY [facility] Montelukast Sodium (Singulair) 10 mg PO HS [facility] Last Admin: 02/06/17 21:43 Dose: 10 mg Pantoprazole Sodium (Protonix Ec Tab) 40 mg PO DAILY [facility] Last Admin: 02/06/17 09:52 Dose: 40 mg Promethazine HCl/Codeine (Phenergan/Codeine Oral Syrup) 10 ml PO Q8 [facility] Last Admin: 02/06/17 21:44 Dose: 10 ml Fluticasone/Salmeterol (Advair Diskus 250/50) 1 puff INH RQ12 [facility] Last Admin: 02/06/17 20:14 Dose: 1 puff - Labs Labs: 02/05/17 08:08 02/05/17 08:08 PT 19.0 SECONDS (9.7-12.2) H 02/06/17 18:24 INR 1.6 02/06/17 18:24 - Constitutional Appears: No Acute Distress - Head Exam Head Exam: ATRAUMATIC, NORMAL INSPECTION, NORMOCEPHALIC - Eye Exam Eye Exam: EOMI, Normal appearance, PERRL Pupil Exam: NORMAL ACCOMODATION, PERRL - Respiratory Exam Respiratory Exam: Decreased Breath Sounds, Rales, Rhonchi, Wheezes - Cardiovascular Exam Cardiovascular Exam: REGULAR RHYTHM, +S1, +S2. absent: Murmur - Neurological Exam Neurological Exam: Alert, Awake, CN II-XII Intact, Normal Gait, Oriented x3 - Psychiatric Exam Psychiatric exam: Anxious - Skin Skin Exam: Dry, Intact, Normal Color, Warm Assessment and Plan (1) Degenerative joint disease Status: Acute (2) DVT (deep venous thrombosis) Status: Acute (3) Diabetes Status: Acute (4) Acute asthma exacerbation Assessment & Plan: mucomyst via nebulizer pulmonoligy consulted CT lungs, andomen and pelvus ordered Status: Acute
[2017-02-07] MEDS: Acetylcysteine 20% Inhal Soln (4ml) INH SCH ×4 (01:28→20:04)
[2017-02-07] MEDS: Levothyroxine 125 MCG TAB PO SCH (05:49)
[2017-02-07] MEDS: Promethazine/Cod 6.25mg-10mg/5ml Syr UD PO SCH ×3 (05:49→21:14)
[2017-02-07] MEDS: Fluticasone-Salmeterol 250-50mcg Diskus INH SCH ×2 (07:53→20:04)
[2017-02-07] MEDS: MethylPREDNISolone 40 mg Vial IVP SCH (09:44)
[2017-02-07] MEDS: guaiFENesin 200 mg/10 ml Syrup UD PO PRN (09:45)
[2017-02-07] MEDS: Pantoprazole 40 mg EC Tab PO SCH (09:45)
[2017-02-07] MEDS: (Novolin R) Insulin Human Regular 100 units/ml vial SC SCH ×4 (09:45→22:06)
[2017-02-07] MEDS ORDERED: Phytonadione 10 mg/ml Inj (Adult) SC STA (11:24)
[2017-02-07] MEDS ORDERED: Iohexol 240 (50 ml) PO ONE (12:30)
[2017-02-07] MEDS: Albuterol-Ipratrop 3 mg / 0.5 (3 ml) UD INH SCH ×2 (13:23→20:04)
[2017-02-07] MEDS: Belladonna-Phenobarbital PO SCH ×2 (13:30→17:33)
[2017-02-07 14:04] LABS: INR 1.8
[2017-02-07 14:53] LABS: CARCINOEMBRYONIC ANTIGEN 5.3 ng/mL (0-3.0)
[2017-02-07 14:56] LABS: CA 19-9 12.3 U/mL (0-37)
--- NOTE | 2017-02-07 15:43 | CP.PCM.PN ---
Subjective - Date & Time of Evaluation Date of Evaluation: 02/07/17 Time of Evaluation: 15:42 - Subjective Subjective: Pt seen and examined c/o cough Objective - Vital Signs/Intake and Output Vital Signs (last 24 hours): Temp Pulse Resp BP Pulse Ox 97.4 F L 73 20 129/74 97 02/07/17 08:00 02/07/17 08:00 02/07/17 08:00 02/07/17 08:00 02/07/17 08:00 Intake and Output: 02/07/17 02/07/17 06:59 18:59 Intake Total 200 Balance 200 - Medications Medications: Current Medications Acetylcysteine (Acetylcysteine 20%) 4 ml INH RQ6 [facility] Last Admin: 02/07/17 13:23 Dose: 4 ml Al Hydrox/Mg Hydrox/Simethicone (Maalox 30 Ml) 30 ml PO TID PRN PRN Reason: Indigestion / Heartburn Last Admin: 02/06/17 13:23 Dose: 30 ml Albuterol/Ipratropium (Duoneb 3 Mg/0.5 Mg (3 Ml) Ud) 3 ml INH RQ6 [facility] Last Admin: 02/07/17 13:23 Dose: 3 ml Belladonna/Phenobarbital () 1 tab PO TID [facility] Last Admin: 02/07/17 13:30 Dose: 1 tab Guaifenesin (Robitussin) 200 mg PO Q4H PRN PRN Reason: Cough and congestion Last Admin: 02/07/17 09:45 Dose: 200 mg Heparin Sodium (Porcine) (Heparin) 5,000 units SC Q8 [facility] Last Admin: 02/07/17 14:52 Dose: 5,000 units Insulin Human Regular (Novolin R) 0 unit SC ACHS [facility] PRN Reason: Protocol Last Admin: 02/07/17 13:29 Dose: 2 unit Levothyroxine Sodium (Synthroid) 125 mcg PO DAILY@0630 [facility] Last Admin: 02/07/17 05:49 Dose: 125 mcg Loratadine (Claritin) 10 mg PO DAILY [facility] Last Admin: 02/07/17 09:45 Dose: 10 mg Metformin HCl (Glucophage) 850 mg PO BIDCC [facility] Last Admin: 02/07/17 09:44 Dose: 850 mg Methylprednisolone (Solu-Medrol) 40 mg IVP DAILY [facility] Last Admin: 02/07/17 09:44 Dose: 40 mg Montelukast Sodium (Singulair) 10 mg PO HS [facility] Last Admin: 02/06/17 21:43 Dose: 10 mg Pantoprazole Sodium (Protonix Ec Tab) 40 mg PO DAILY [facility] Last Admin: 02/07/17 09:45 Dose: 40 mg Promethazine HCl/Codeine (Phenergan/Codeine Oral Syrup) 10 ml PO Q8 [facility] Last Admin: 02/07/17 13:30 Dose: 10 ml Fluticasone/Salmeterol (Advair Diskus 250/50) 1 puff INH RQ12 [facility] Last Admin: 02/07/17 07:53 Dose: 1 puff - Labs Labs: 02/05/17 08:08 02/05/17 08:08 PT 20.4 SECONDS (9.7-12.2) H 02/07/17 13:51 INR 1.8 02/07/17 13:51 APTT 31 SECONDS (21-34) 02/07/17 13:51 - Head Exam Head Exam: NORMAL INSPECTION - Eye Exam Eye Exam: Normal appearance - ENT Exam ENT Exam: Mucous Membranes Moist - Respiratory Exam Respiratory Exam: Clear to Ausculation Bilateral - Cardiovascular Exam Cardiovascular Exam: REGULAR RHYTHM, +S1, +S2 - GI/Abdominal Exam GI & Abdominal Exam: Soft, Normal Bowel Sounds - Extremities Exam Extremities Exam: Normal Inspection - Neurological Exam Neurological Exam: Alert, Oriented x3 Assessment and Plan - Assessment and Plan (Free Text) Assessment: Asthma Exacerbation Persistent Cough DM Hypothyroidism Awaiting CT chest Continue Advair Bronchodilators O2 supplementation Continue IV Solumedrol Promethazine with codeine DVT/GI prophalaxis
[2017-02-07] MEDS ORDERED: Iohexol 300 100 ML IJ ONE (16:41)
--- NOTE | 2017-02-07 19:59 | CT ---
EXAM: CT Abdomen and Pelvis With Intravenous Contrast CLINICAL HISTORY: 76 years old, female; Signs and symptoms; Vomiting; Dyspnea; Additional info: Abd pain TECHNIQUE: Axial computed tomography images of the abdomen and pelvis with intravenous contrast. All CT scans at this facility use one or more dose reduction techniques, viz.: automated exposure control; ma/kV adjustment per patient size (including targeted exams where dose is matched to indication; i.e. head); or iterative reconstruction technique. Coronal and sagittal reformatted images were created and reviewed. CONTRAST: 100 mL of omnipaque 300 administered intravenously. COMPARISON: No relevant prior studies available. FINDINGS: Lower thorax: No acute findings. ABDOMEN: Liver: The liver measures 17 cm in craniocaudal span. It appears to be a Phani's lobe. No mass. Gallbladder and bile ducts: Gallstones are seen in the gallbladder. No ductal dilation. Pancreas: Unremarkable. No mass. No ductal dilation. Spleen: Unremarkable. No splenomegaly. Adrenals: Unremarkable. No mass. Kidneys and ureters: Unremarkable. No solid mass. No hydronephrosis. Stomach and bowel: A moderate to large amount of stool is seen within the colon. No mucosal thickening. Appendix: No findings to suggest acute appendicitis. PELVIS: Bladder: Unremarkable. No mass. Reproductive: Vascular calcifications are noted within the uterus. ABDOMEN and PELVIS: Intraperitoneal space: Unremarkable. No free air. No significant fluid collection. Bones/joints: There's an underlying scoliosis of the spine with secondary degenerative changes. No acute fracture. No dislocation. Soft tissues: There is rectus diastasis. Air is noted within the subcutaneous fat of the left anterior abdominal wall and is likely related to an injection. Calcified granulomas are noted within the subcutaneous fat of the left buttocks. There is a left-sided Petit hernia containing fat. Vasculature: See above. Lymph nodes: Unremarkable. No enlarged lymph nodes. IMPRESSION: 1. Gallstones. 2. Moderate to large amount of stool. No abnormally dilated small bowel loops. 3. Rectus diastases. 4. Left-sided Petit hernia containing fat EXAM: CT Chest With Intravenous Contrast EXAM DATE/TIME: Exam ordered 02/06/2017 6:56 PM CLINICAL HISTORY: 76 years old, female; Signs and symptoms; Vomiting; Dyspnea; Additional info: Abd pain TECHNIQUE: Axial computed tomography images of the chest with intravenous contrast. All CT scans at this facility use one or more dose reduction techniques, viz.: automated exposure control; ma/kV adjustment per patient size (including targeted exams where dose is matched to indication; i.e. head); or iterative reconstruction technique. Coronal and sagittal reformatted images were created and reviewed. CONTRAST: 100 mL of omnipaque 300 administered intravenously. COMPARISON: No relevant prior studies available. FINDINGS: Lungs: There is a calcified granuloma noted in the right upper lobe. Discoid atelectasis or scar seen in the right middle lobe. There are 7 mm nodule noted in the right middle lobe. (Series 3 image 52). Pleural space: Unremarkable. No pneumothorax. No significant effusion. Heart: Unremarkable. No cardiomegaly. No significant pericardial effusion. Bones/joints: A lipoma is located posterior to scapula. Degenerative changes are noted of the dorsal spine. No acute fracture. No dislocation. Soft tissues: There is a lipoma noted within the subcutaneous fat of the left posterior chest wall. Measures 14.5 x 3.3 x 15 cm. Vasculature: Unremarkable. No thoracic aortic aneurysm. Lymph nodes: Unremarkable. No enlarged lymph nodes. IMPRESSION: 1. Right middle lobe pulmonary nodule. Recommend follow-up chest CT at 3-6 months to confirm persistence. If stable, chest CT every year until 5 years.. 2. Left posterior chest wall lipoma Images were attached to this report and are available at [email or web address]
--- NOTE | 2017-02-07 22:59 | CP.PCM.PN ---
Subjective - Date & Time of Evaluation Date of Evaluation: 02/07/17 Time of Evaluation: 09:45 - Subjective Subjective: pt seen and examined at bedside, still c/o cough. congestion and gen body aches Objective - Vital Signs/Intake and Output Vital Signs (last 24 hours): Temp Pulse Resp BP Pulse Ox 98.0 F 99 H 20 129/76 97 02/07/17 15:50 02/07/17 15:50 02/07/17 15:50 02/07/17 15:50 02/07/17 15:50 Intake and Output: 02/07/17 02/08/17 18:59 06:59 Intake Total 300 350 Balance 300 350 - Medications Medications: Current Medications Acetylcysteine (Acetylcysteine 20%) 4 ml INH RQ6 [facility] Last Admin: 02/07/17 20:04 Dose: 4 ml Al Hydrox/Mg Hydrox/Simethicone (Maalox 30 Ml) 30 ml PO TID PRN PRN Reason: Indigestion / Heartburn Last Admin: 02/06/17 13:23 Dose: 30 ml Albuterol/Ipratropium (Duoneb 3 Mg/0.5 Mg (3 Ml) Ud) 3 ml INH RQ6 [facility] Last Admin: 02/07/17 20:04 Dose: 3 ml Belladonna/Phenobarbital () 1 tab PO TID [facility] Last Admin: 02/07/17 17:33 Dose: 1 tab Guaifenesin (Robitussin) 200 mg PO Q4H PRN PRN Reason: Cough and congestion Last Admin: 02/07/17 09:45 Dose: 200 mg Heparin Sodium (Porcine) (Heparin) 5,000 units SC Q8 [facility] Last Admin: 02/07/17 21:13 Dose: 5,000 units Insulin Human Regular (Novolin R) 0 unit SC ACHS [facility] PRN Reason: Protocol Last Admin: 02/07/17 22:06 Dose: Not Given Levothyroxine Sodium (Synthroid) 125 mcg PO DAILY@0630 [facility] Last Admin: 02/07/17 05:49 Dose: 125 mcg Loratadine (Claritin) 10 mg PO DAILY [facility] Last Admin: 02/07/17 09:45 Dose: 10 mg Metformin HCl (Glucophage) 850 mg PO BIDCC [facility] Last Admin: 02/07/17 09:44 Dose: 850 mg Methylprednisolone (Solu-Medrol) 40 mg IVP DAILY [facility] Last Admin: 02/07/17 09:44 Dose: 40 mg Montelukast Sodium (Singulair) 10 mg PO HS [facility] Last Admin: 02/07/17 21:14 Dose: 10 mg Pantoprazole Sodium (Protonix Ec Tab) 40 mg PO DAILY [facility] Last Admin: 02/07/17 09:45 Dose: 40 mg Promethazine HCl/Codeine (Phenergan/Codeine Oral Syrup) 10 ml PO Q8 [facility] Last Admin: 02/07/17 21:14 Dose: 10 ml Fluticasone/Salmeterol (Advair Diskus 250/50) 1 puff INH RQ12 [facility] Last Admin: 02/07/17 20:04 Dose: 1 puff - Labs Labs: 02/05/17 08:08 02/05/17 08:08 PT 20.4 SECONDS (9.7-12.2) H 02/07/17 13:51 INR 1.8 02/07/17 13:51 APTT 31 SECONDS (21-34) 02/07/17 13:51 - Constitutional Appears: No Acute Distress - Head Exam Head Exam: ATRAUMATIC, NORMAL INSPECTION, NORMOCEPHALIC - Eye Exam Eye Exam: EOMI, Normal appearance, PERRL Pupil Exam: NORMAL ACCOMODATION, PERRL - Respiratory Exam Respiratory Exam: Decreased Breath Sounds, Rales, Rhonchi, Wheezes - Cardiovascular Exam Cardiovascular Exam: REGULAR RHYTHM, +S1, +S2. absent: Murmur - GI/Abdominal Exam GI & Abdominal Exam: Soft, Normal Bowel Sounds. absent: Tenderness - Neurological Exam Neurological Exam: Alert, Awake, CN II-XII Intact, Normal Gait, Oriented x3 - Psychiatric Exam Psychiatric exam: Normal Affect, Normal Mood - Skin Skin Exam: Dry, Intact, Normal Color, Warm Assessment and Plan (1) Degenerative joint disease Status: Acute (2) DVT (deep venous thrombosis) Status: Acute (3) Diabetes Status: Acute (4) Acute asthma exacerbation Status: Acute - Assessment and Plan (Free Text) Plan: Awaiting CT chest Continue Advair Bronchodilators O2 supplementation Continue IV Solumedrol Promethazine with codeine DVT/GI prophalaxis
[2017-02-08] MEDS: Acetylcysteine 20% Inhal Soln (4ml) INH SCH ×4 (01:35→19:37)
[2017-02-08] MEDS: Albuterol-Ipratrop 3 mg / 0.5 (3 ml) UD INH SCH ×4 (01:36→19:37)
[2017-02-08] MEDS: Levothyroxine 125 MCG TAB PO SCH (05:46)
[2017-02-08] MEDS: Promethazine/Cod 6.25mg-10mg/5ml Syr UD PO SCH ×3 (05:48→21:47)
[2017-02-08] MEDS: Fluticasone-Salmeterol 250-50mcg Diskus INH SCH ×3 (07:11→19:38)
[2017-02-08] MEDS: (Novolin R) Insulin Human Regular 100 units/ml vial SC SCH ×4 (08:09→22:18)
--- NOTE | 2017-02-08 09:26 | PN ---
DATE: 02/06/2017 LOCATION: Room 550, bed B. SUBJECTIVE: This 76-year-old female seen and examined for GI consultation as requested by the admitting MD on 02/06/2017, the exam began today with some language barrier, but reported intermittent periods of severe crampy abdominal pain with less oral intake. The entire chart is reviewed including, but not limited to the most recent lab and radiology study results, current and the previous medication lists, current and the previous medical events. Due to the patient's persistent abdominal pain with dyspepsia, she should be scheduled for upper endoscopy at a.m. Most recent lab results showed increased PT to 19 with a blood glucose level of 160, but normal hemoglobin and hematocrit. PHYSICAL EXAMINATION: GENERAL: A 76-year-old female appears to be awake, alert, oriented. VITAL SIGNS: Afebrile with pulse of 76, respiratory rate 20 to 22, blood pressure 136/76. HEENT: Showed dry oral mucous membrane, nonicteric sclerae. LUNGS: Few scattered crepitation. Decreased air entry at bases. HEART: Positive S1 and S2. ABDOMEN: Soft. Bowel sounds are present with mild generalized tenderness. No masses or organomegaly. No rebound tenderness or guarding with hypoactive bowel sounds, but mild abdominal distention. EXTREMITIES: Show mild lower extremity edematous changes. No clubbing or cyanosis. NEUROLOGIC: No reported new neurological deficits, sensory or motor. IMPRESSION: 1. Re-exacerbation of peptic ulcer disease. 2. Coagulopathy, drug-induced. 3. Known history of diabetes mellitus, hypothyroidism, rheumatoid arthritis as well as deep venous thrombosis. 4. Rule out gastric versus duodenal ulcer. SUGGESTIONS: 1. Agree with your plan. 2. Endoscopic evaluation of the GI tract. 3. Cancer markers. 4. Guaiac all the stool every day x3. 5. Bentyl 10 mg one tablet twice a day as needed. 6. one tablet three times a day. 7. Further recommendation to follow. Liborio Nicole MD cc: Liborio Nicole MD
[2017-02-08] MEDS: Belladonna-Phenobarbital PO SCH ×3 (11:02→17:13)
[2017-02-08] MEDS: MethylPREDNISolone 40 mg Vial IVP SCH (11:02)
[2017-02-08] MEDS: Pantoprazole 40 mg EC Tab PO SCH (11:03)
[2017-02-08] MEDS ORDERED: Propofol 10 mg/ml Inj (20 ML) ONE (13:04)
[2017-02-08] MEDS ORDERED: Lactated Ringer's 500 ML IV SCH ×2 (13:15→13:30)
[2017-02-08] MEDS ORDERED: Peg-Electrolyte Oral Soln 4L (Golytely) PO ONE (14:30)
[2017-02-08] MEDS ORDERED: Bisacodyl 5mg EC Tab PO ONE (17:00)
--- NOTE | 2017-02-08 19:03 | CP.PCM.PN ---
Subjective - Date & Time of Evaluation Date of Evaluation: 02/08/17 Time of Evaluation: 19:01 - Subjective Subjective: Pt seen and examined No events overnight CT chest/Abd and pelvis reviewed. No acute findings RLL lung nodule Objective - Vital Signs/Intake and Output Vital Signs (last 24 hours): Temp Pulse Resp BP Pulse Ox 98.4 F 90 20 126/68 96 02/08/17 15:35 02/08/17 15:35 02/08/17 15:35 02/08/17 15:35 02/08/17 15:35 Intake and Output: 02/08/17 02/09/17 18:59 06:59 Intake Total 200 Balance 200 - Medications Medications: Current Medications Acetylcysteine (Acetylcysteine 20%) 4 ml INH RQ6 [facility] Last Admin: 02/08/17 13:35 Dose: Not Given Al Hydrox/Mg Hydrox/Simethicone (Maalox 30 Ml) 30 ml PO TID PRN PRN Reason: Indigestion / Heartburn Last Admin: 02/06/17 13:23 Dose: 30 ml Albuterol/Ipratropium (Duoneb 3 Mg/0.5 Mg (3 Ml) Ud) 3 ml INH RQ6 [facility] Last Admin: 02/08/17 13:35 Dose: Not Given Belladonna/Phenobarbital () 1 tab PO TID [facility] Last Admin: 02/08/17 17:13 Dose: 1 tab Fluconazole (Diflucan) 100 mg PO DAILY [facility] Guaifenesin (Robitussin) 200 mg PO Q4H PRN PRN Reason: Cough and congestion Last Admin: 02/07/17 09:45 Dose: 200 mg Heparin Sodium (Porcine) (Heparin) 5,000 units SC Q8 [facility] Last Admin: 02/08/17 14:50 Dose: 5,000 units Insulin Human Regular (Novolin R) 0 unit SC ACHS [facility] PRN Reason: Protocol Last Admin: 02/08/17 17:13 Dose: 6 unit Levothyroxine Sodium (Synthroid) 125 mcg PO DAILY@0630 [facility] Last Admin: 02/08/17 05:46 Dose: 125 mcg Loratadine (Claritin) 10 mg PO DAILY [facility] Last Admin: 02/08/17 11:03 Dose: 10 mg Metformin HCl (Glucophage) 850 mg PO BIDCC [facility] Last Admin: 02/07/17 09:44 Dose: 850 mg Methylprednisolone (Solu-Medrol) 40 mg IVP DAILY [facility] Last Admin: 02/08/17 11:02 Dose: 40 mg Metoclopramide HCl (Reglan) 5 mg IVP Q6 [facility] Stop: 02/10/17 12:01 Montelukast Sodium (Singulair) 10 mg PO HS [facility] Last Admin: 02/07/17 21:14 Dose: 10 mg Pantoprazole Sodium (Protonix Ec Tab) 40 mg PO DAILY [facility] Last Admin: 02/08/17 11:03 Dose: 40 mg Promethazine HCl/Codeine (Phenergan/Codeine Oral Syrup) 10 ml PO Q8 [facility] Last Admin: 02/08/17 14:50 Dose: 10 ml Fluticasone/Salmeterol (Advair Diskus 250/50) 1 puff INH RQ12 [facility] Last Admin: 02/08/17 07:11 Dose: 1 puff - Labs Labs: 02/05/17 08:08 02/05/17 08:08 PT 20.4 SECONDS (9.7-12.2) H 02/07/17 13:51 INR 1.8 02/07/17 13:51 APTT 31 SECONDS (21-34) 02/07/17 13:51 - Head Exam Head Exam: NORMAL INSPECTION - Eye Exam Eye Exam: Normal appearance - ENT Exam ENT Exam: Mucous Membranes Moist - Respiratory Exam Respiratory Exam: Clear to Ausculation Bilateral - Cardiovascular Exam Cardiovascular Exam: REGULAR RHYTHM, +S1, +S2 - GI/Abdominal Exam GI & Abdominal Exam: Soft, Normal Bowel Sounds - Extremities Exam Extremities Exam: Normal Inspection Assessment and Plan - Assessment and Plan (Free Text) Assessment: Asthma Exacerbation Persistent Cough Diabeties Hypothyroidism CT chest results discussed with son Continue Advair 250/50 mcg 1 P BID Bronchodilators O2 supplementation Continue IV Solumedrol Promethazine with codeine DVT/GI prophalaxis
--- NOTE | 2017-02-08 19:14 | PN ---
DATE: 02/07/2017 SUBJECTIVE: The patient was seen while rounding on the floor on 02/07/2017. Notes, chart, labs, imaging etc., are reviewed, confirmed and discussed with the patient as well as Dr. Alexander. The patient is a 76-year-old female with multiple medical problems, who was admitted with high INR secondary to Coumadin. The patient received oral vitamin K, and her INR is 1.6. There is no evidence of any bruises, bleeding, or hemorrhage. The patient's complete blood count and comprehensive chemistry is unremarkable. The patient's duplex scan to rule out DVT is also negative. The patient is similarly doing well and has no new symptoms. The patient feels much better than what she was at the time of admission. The patient denies any headache or neurological symptoms. The patient denies any chest pain, shortness of breath or palpation. The patient denies any nausea, vomiting, abdominal pain, fever, or diarrhea. The patient denies any leg swelling or cyanosis. REVIEW OF SYSTEMS: As stated above. PHYSICAL EXAMINATION: GENERAL: The patient is alert, awake, oriented. VITAL SIGNS: The patient is afebrile, pulse is 78, respirations 16 per minute. HEENT: Unremarkable, anicteric. NECK: Supple neck. No adenopathy. No JVD. CHEST: Bilateral air. No rales or rhonchi. ABDOMEN: Soft, nontender. Bowel sounds present. No palpable hepatosplenomegaly. EXTREMITIES: No clubbing, no cyanosis, no pedal edema. NEUROLOGIC: Alert, awake, oriented, nonfocal. ASSESSMENT AND PLAN: The patient is a 76-year-old female who was admitted with multiple medical issues and a high INR. The patient received oral vitamin K and INR has come down to reasonable level of 1.6. Her duplex venous scan for DVT was negative, and there is no evidence of deep vein thrombosis. The patient's chemistry and blood count is within normal limits. The patient was instructed to have a followup with Dr. Alexander, and if needed, she can come follow up in my office. The patient instructed to have routine GI evaluation and routine screening colonoscopy to rule out any blood losses. All of the above discussed in great detail with Dr. Alexander. Donato Lai MD
--- NOTE | 2017-02-08 22:43 | CP.PCM.PN ---
Subjective - Date & Time of Evaluation Date of Evaluation: 02/08/17 Time of Evaluation: 20:00 - Subjective Subjective: pt seen and examined,doing well, coughing alot but less short of breath, is for colonoscopy tommorow, EGD shows hiatal hernia CT chest/Abd and pelvis reviewed. No acute findings RLL lung nodule Objective - Vital Signs/Intake and Output Vital Signs (last 24 hours): Temp Pulse Resp BP Pulse Ox 98.4 F 90 20 126/68 96 02/08/17 15:35 02/08/17 15:35 02/08/17 15:35 02/08/17 15:35 02/08/17 15:35 Intake and Output: 02/08/17 02/09/17 18:59 06:59 Intake Total 200 400 Balance 200 400 - Medications Medications: Current Medications Acetylcysteine (Acetylcysteine 20%) 4 ml INH RQ6 [facility] Last Admin: 02/08/17 19:37 Dose: 4 ml Al Hydrox/Mg Hydrox/Simethicone (Maalox 30 Ml) 30 ml PO TID PRN PRN Reason: Indigestion / Heartburn Last Admin: 02/06/17 13:23 Dose: 30 ml Albuterol/Ipratropium (Duoneb 3 Mg/0.5 Mg (3 Ml) Ud) 3 ml INH RQ6 [facility] Last Admin: 02/08/17 19:37 Dose: 3 ml Belladonna/Phenobarbital () 1 tab PO TID [facility] Last Admin: 02/08/17 17:13 Dose: 1 tab Fluconazole (Diflucan) 100 mg PO DAILY [facility] Guaifenesin (Robitussin) 200 mg PO Q4H PRN PRN Reason: Cough and congestion Last Admin: 02/07/17 09:45 Dose: 200 mg Heparin Sodium (Porcine) (Heparin) 5,000 units SC Q8 [facility] Last Admin: 02/08/17 21:47 Dose: 5,000 units Insulin Human Regular (Novolin R) 0 unit SC ACHS [facility] PRN Reason: Protocol Last Admin: 02/08/17 17:13 Dose: 6 unit Levothyroxine Sodium (Synthroid) 125 mcg PO DAILY@0630 [facility] Last Admin: 02/08/17 05:46 Dose: 125 mcg Loratadine (Claritin) 10 mg PO DAILY [facility] Last Admin: 02/08/17 11:03 Dose: 10 mg Metformin HCl (Glucophage) 850 mg PO BIDCC [facility] Last Admin: 02/07/17 09:44 Dose: 850 mg Methylprednisolone (Solu-Medrol) 40 mg IVP DAILY [facility] Last Admin: 02/08/17 11:02 Dose: 40 mg Metoclopramide HCl (Reglan) 5 mg IVP Q6 [facility] Stop: 02/10/17 12:01 Last Admin: 02/08/17 19:13 Dose: 5 mg Montelukast Sodium (Singulair) 10 mg PO HS [facility] Last Admin: 02/08/17 21:48 Dose: 10 mg Pantoprazole Sodium (Protonix Ec Tab) 40 mg PO DAILY [facility] Last Admin: 02/08/17 11:03 Dose: 40 mg Promethazine HCl/Codeine (Phenergan/Codeine Oral Syrup) 10 ml PO Q8 [facility] Last Admin: 02/08/17 21:47 Dose: 10 ml Fluticasone/Salmeterol (Advair Diskus 250/50) 1 puff INH RQ12 [facility] Last Admin: 02/08/17 19:38 Dose: 1 puff - Labs Labs: 02/05/17 08:08 02/05/17 08:08 PT 20.4 SECONDS (9.7-12.2) H 02/07/17 13:51 INR 1.8 02/07/17 13:51 APTT 31 SECONDS (21-34) 02/07/17 13:51 - Constitutional Appears: No Acute Distress - Head Exam Head Exam: ATRAUMATIC, NORMAL INSPECTION, NORMOCEPHALIC - Eye Exam Eye Exam: EOMI, Normal appearance, PERRL Pupil Exam: NORMAL ACCOMODATION, PERRL - Respiratory Exam Respiratory Exam: Clear to Ausculation Bilateral, NORMAL BREATHING PATTERN - Cardiovascular Exam Cardiovascular Exam: REGULAR RHYTHM, +S1, +S2. absent: Murmur - GI/Abdominal Exam GI & Abdominal Exam: Soft, Normal Bowel Sounds. absent: Tenderness Assessment and Plan (1) Degenerative joint disease Status: Acute (2) DVT (deep venous thrombosis) Status: Acute (3) Diabetes Status: Acute (4) Acute asthma exacerbation Status: Acute - Assessment and Plan (Free Text) Plan: colonoscopy in am
[2017-02-09] MEDS: Acetylcysteine 20% Inhal Soln (4ml) INH SCH ×4 (02:40→19:41)
[2017-02-09] MEDS: Albuterol-Ipratrop 3 mg / 0.5 (3 ml) UD INH SCH ×4 (02:40→19:41)
[2017-02-09] MEDS: Levothyroxine 125 MCG TAB PO SCH (05:43)
[2017-02-09] MEDS: Promethazine/Cod 6.25mg-10mg/5ml Syr UD PO SCH ×3 (05:52→21:59)
[2017-02-09] MEDS: guaiFENesin 200 mg/10 ml Syrup UD PO PRN (05:52)
[2017-02-09] MEDS: Fluticasone-Salmeterol 250-50mcg Diskus INH SCH ×2 (07:23→19:41)
[2017-02-09] MEDS: (Novolin R) Insulin Human Regular 100 units/ml vial SC SCH ×4 (07:37→21:55)
[2017-02-09 07:50] LABS: BASO # 0.1 K/uL (0.0-0.2); BASO % 0.3 % (0.0-2.0); EOS # 0.2 K/uL (0.0-0.7); EOS % 0.9 % (0.0-4.0); HEMATOCRIT 37.3 % (34.0-47.0); LYMPH # 2.7 K/uL (1.0-4.3); LYMPH % 14.6 % (20.0-40.0); MEAN CELL VOLUME 84.2 fL (81.0-99.0); MEAN CORPUSCULAR HEMOGLOBIN 26.9 pg (27.0-31.0); MEAN CORPUSCULAR HGB CONC 31.9 g/dL (33.0-37.0); MEAN PLATELET VOLUME 8.9 fL (7.2-11.7); MONO # 1.2 K/uL (0.0-0.8); MONO % 6.7 % (0.0-10.0); RED CELL DISTRIBUTION WIDTH 15.3 % (11.5-14.5)
[2017-02-09 08:09] LABS: WHITE BLOOD COUNT 18.7 K/uL (4.8-10.8)
[2017-02-09 08:21] LABS: CHLORIDE 94 mmol/L (98-107); POTASSIUM 3.4 mmol/L (3.6-5.2); SODIUM 137 mmol/L (132-148)
[2017-02-09 08:24] LABS: BLOOD UREA NITROGEN 10 mg/dL (7-17); CARBON DIOXIDE 30 mmol/L (22-30); GFR AFRICAN-AMERICAN > 60
[2017-02-09 08:25] LABS: GLUCOSE,RANDOM 98 mg/dL (65-105)
[2017-02-09] MEDS ORDERED: Lactated Ringer's 1,000 ML IV ONE (10:05)
[2017-02-09] MEDS ORDERED: Propofol 10 mg/ml Inj (20 ML) ONE (10:08)
[2017-02-09] MEDS: MethylPREDNISolone 40 mg Vial IVP SCH (11:51)
[2017-02-09] MEDS: Belladonna-Phenobarbital PO SCH ×3 (11:53→17:31)
[2017-02-09] MEDS: Pantoprazole 40 mg EC Tab PO SCH (11:54)
[2017-02-09] MEDS: Hydrocortisone 2.5% Rectal Cream(30 gm) PR SCH (17:35)
--- NOTE | 2017-02-09 18:04 | CP.PCM.PN ---
Subjective - Date & Time of Evaluation Date of Evaluation: 02/09/17 Time of Evaluation: 18:03 - Subjective Subjective: Patient seen and examined No events overnight Complaint of cough with exertion Objective - Vital Signs/Intake and Output Vital Signs (last 24 hours): Temp Pulse Resp BP Pulse Ox 96.9 F L 71 13 98/50 L 100 02/09/17 10:27 02/09/17 10:57 02/09/17 10:57 02/09/17 10:57 02/09/17 10:57 Intake and Output: 02/09/17 02/09/17 06:59 18:59 Intake Total 400 300 Balance 400 300 - Medications Medications: Current Medications Acetylcysteine (Acetylcysteine 20%) 4 ml INH RQ6 [facility] Last Admin: 02/09/17 13:43 Dose: 4 ml Al Hydrox/Mg Hydrox/Simethicone (Maalox 30 Ml) 30 ml PO TID PRN PRN Reason: Indigestion / Heartburn Last Admin: 02/06/17 13:23 Dose: 30 ml Albuterol/Ipratropium (Duoneb 3 Mg/0.5 Mg (3 Ml) Ud) 3 ml INH RQ6 [facility] Last Admin: 02/09/17 13:43 Dose: 3 ml Belladonna/Phenobarbital () 1 tab PO TID [facility] Last Admin: 02/09/17 17:31 Dose: 1 tab Fluconazole (Diflucan) 100 mg PO DAILY [facility] Last Admin: 02/09/17 11:53 Dose: 100 mg Guaifenesin (Robitussin) 200 mg PO Q4H PRN PRN Reason: Cough and congestion Last Admin: 02/09/17 05:52 Dose: 200 mg Heparin Sodium (Porcine) (Heparin) 5,000 units SC Q8 [facility] Last Admin: 02/09/17 13:38 Dose: 5,000 units Hydrocortisone (Anusol-Hc) 0 gm [place] BID [facility] Last Admin: 02/09/17 17:35 Dose: 1 applic Insulin Human Regular (Novolin R) 0 unit SC ACHS [facility] PRN Reason: Protocol Last Admin: 02/09/17 17:30 Dose: 4 unit Levothyroxine Sodium (Synthroid) 125 mcg PO DAILY@0630 [facility] Last Admin: 02/09/17 05:43 Dose: 125 mcg Loratadine (Claritin) 10 mg PO DAILY [facility] Last Admin: 02/09/17 11:54 Dose: 10 mg Metformin HCl (Glucophage) 850 mg PO BIDCC [facility] Last Admin: 02/07/17 09:44 Dose: 850 mg Methylprednisolone (Solu-Medrol) 40 mg IVP DAILY [facility] Last Admin: 02/09/17 11:51 Dose: 40 mg Metoclopramide HCl (Reglan) 5 mg IVP Q6 [facility] Stop: 02/10/17 12:01 Last Admin: 02/09/17 11:51 Dose: 5 mg Montelukast Sodium (Singulair) 10 mg PO HS [facility] Last Admin: 02/08/17 21:48 Dose: 10 mg Pantoprazole Sodium (Protonix Ec Tab) 40 mg PO DAILY [facility] Last Admin: 02/09/17 11:54 Dose: 40 mg Promethazine HCl/Codeine (Phenergan/Codeine Oral Syrup) 10 ml PO Q8 [facility] Last Admin: 02/09/17 14:32 Dose: Not Given Fluticasone/Salmeterol (Advair Diskus 250/50) 1 puff INH RQ12 [facility] Last Admin: 02/09/17 07:23 Dose: 1 puff - Labs Labs: 02/09/17 07:33 02/09/17 07:33 PT 20.4 SECONDS (9.7-12.2) H 02/07/17 13:51 INR 1.8 02/07/17 13:51 APTT 31 SECONDS (21-34) 02/07/17 13:51 - Head Exam Head Exam: NORMAL INSPECTION - Eye Exam Eye Exam: Normal appearance - ENT Exam ENT Exam: Mucous Membranes Moist - Respiratory Exam Respiratory Exam: Decreased Breath Sounds, Clear to Ausculation Bilateral - Cardiovascular Exam Cardiovascular Exam: REGULAR RHYTHM, +S1, +S2 - GI/Abdominal Exam GI & Abdominal Exam: Soft, Normal Bowel Sounds Assessment and Plan - Assessment and Plan (Free Text) Assessment: Asthma Exacerbation Persistent Cough DM Hypothyroidism Continue Advair Bronchodilators O2 supplementation Steroids Promethazine with codeine DVT/GI prophalaxis
--- NOTE | 2017-02-09 23:22 | CP.PCM.PN ---
Subjective - Date & Time of Evaluation Date of Evaluation: 02/09/17 Time of Evaluation: 09:45 - Subjective Subjective: Patient seen and examined No events overnight Complaint of cough with exertion Objective - Vital Signs/Intake and Output Vital Signs (last 24 hours): Temp Pulse Resp BP Pulse Ox 98.5 F 91 H 20 120/69 94 L 02/09/17 16:00 02/09/17 16:00 02/09/17 16:00 02/09/17 16:00 02/09/17 16:00 Intake and Output: 02/09/17 02/10/17 18:59 06:59 Intake Total 300 Balance 300 - Medications Medications: Current Medications Acetylcysteine (Acetylcysteine 20%) 4 ml INH RQ6 [facility] Last Admin: 02/09/17 19:41 Dose: 4 ml Al Hydrox/Mg Hydrox/Simethicone (Maalox 30 Ml) 30 ml PO TID PRN PRN Reason: Indigestion / Heartburn Last Admin: 02/06/17 13:23 Dose: 30 ml Albuterol/Ipratropium (Duoneb 3 Mg/0.5 Mg (3 Ml) Ud) 3 ml INH RQ6 [facility] Last Admin: 02/09/17 19:41 Dose: 3 ml Belladonna/Phenobarbital () 1 tab PO TID [facility] Last Admin: 02/09/17 17:31 Dose: 1 tab Fluconazole (Diflucan) 100 mg PO DAILY [facility] Last Admin: 02/09/17 11:53 Dose: 100 mg Guaifenesin (Robitussin) 200 mg PO Q4H PRN PRN Reason: Cough and congestion Last Admin: 02/09/17 05:52 Dose: 200 mg Heparin Sodium (Porcine) (Heparin) 5,000 units SC Q8 [facility] Last Admin: 02/09/17 21:54 Dose: 5,000 units Hydrocortisone (Anusol-Hc) 0 gm [place] BID [facility] Last Admin: 02/09/17 17:35 Dose: 1 applic Insulin Human Regular (Novolin R) 0 unit SC ACHS [facility] PRN Reason: Protocol Last Admin: 02/09/17 21:55 Dose: Not Given Levothyroxine Sodium (Synthroid) 125 mcg PO DAILY@0630 [facility] Last Admin: 02/09/17 05:43 Dose: 125 mcg Loratadine (Claritin) 10 mg PO DAILY [facility] Last Admin: 02/09/17 11:54 Dose: 10 mg Metformin HCl (Glucophage) 850 mg PO BIDCC [facility] Last Admin: 02/07/17 09:44 Dose: 850 mg Methylprednisolone (Solu-Medrol) 40 mg IVP DAILY [facility] Last Admin: 02/09/17 11:51 Dose: 40 mg Metoclopramide HCl (Reglan) 5 mg IVP Q6 [facility] Stop: 02/10/17 12:01 Last Admin: 02/09/17 19:00 Dose: 5 mg Montelukast Sodium (Singulair) 10 mg PO HS [facility] Last Admin: 02/09/17 22:14 Dose: 10 mg Pantoprazole Sodium (Protonix Ec Tab) 40 mg PO DAILY [facility] Last Admin: 02/09/17 11:54 Dose: 40 mg Promethazine HCl/Codeine (Phenergan/Codeine Oral Syrup) 10 ml PO Q8 [facility] Last Admin: 02/09/17 21:59 Dose: 10 ml Fluticasone/Salmeterol (Advair Diskus 250/50) 1 puff INH RQ12 [facility] Last Admin: 02/09/17 19:41 Dose: 1 puff - Labs Labs: 02/09/17 07:33 02/09/17 07:33 PT 20.4 SECONDS (9.7-12.2) H 02/07/17 13:51 INR 1.8 02/07/17 13:51 APTT 31 SECONDS (21-34) 02/07/17 13:51 Assessment and Plan (1) Degenerative joint disease Status: Acute (2) DVT (deep venous thrombosis) Status: Acute (3) Diabetes Status: Acute (4) Acute asthma exacerbation Status: Acute
[2017-02-10 00:30] VITALS: PULSE 72
[2017-02-10] MEDS: Acetylcysteine 20% Inhal Soln (4ml) INH SCH ×3 (01:07→13:11)
[2017-02-10] MEDS: Albuterol-Ipratrop 3 mg / 0.5 (3 ml) UD INH SCH ×3 (01:07→13:11)
[2017-02-10] MEDS: Promethazine/Cod 6.25mg-10mg/5ml Syr UD PO SCH ×2 (05:11→14:19)
[2017-02-10] MEDS: Levothyroxine 125 MCG TAB PO SCH (05:37)
[2017-02-10] MEDS: Fluticasone-Salmeterol 250-50mcg Diskus INH SCH (07:19)
[2017-02-10] MEDS: (Novolin R) Insulin Human Regular 100 units/ml vial SC SCH ×3 (08:47→16:43)
[2017-02-10] MEDS: Pantoprazole 40 mg EC Tab PO SCH (09:20)
[2017-02-10] MEDS: Belladonna-Phenobarbital PO SCH ×3 (09:20→17:28)
[2017-02-10] MEDS: MethylPREDNISolone 40 mg Vial IVP SCH (09:21)
[2017-02-10] MEDS: Hydrocortisone 2.5% Rectal Cream(30 gm) PR SCH ×2 (09:21→17:28)
[2017-02-10 09:42] VITALS: BP 120/66; RESP 18; TEMP 97.7; O2SAT 18
--- NOTE | 2017-02-10 14:36 | CP.PCM.PN ---
Subjective - Date & Time of Evaluation Date of Evaluation: 02/10/17 Time of Evaluation: 11:00 - Subjective Subjective: Pt seen today , denies any sob, abdominal pain, N/V /d , c/o non productive cough afebrile s/p EGD- ( see full report for details ) s/p - colonoscopy Objective - Vital Signs/Intake and Output Vital Signs (last 24 hours): Temp Pulse Resp BP Pulse Ox 97.7 F 72 18 120/66 18 L 02/10/17 07:00 02/10/17 07:00 02/10/17 07:00 02/10/17 07:00 02/10/17 07:00 Intake and Output: 02/10/17 02/10/17 06:59 18:59 Intake Total 360 200 Balance 360 200 - Medications Medications: Current Medications Acetylcysteine (Acetylcysteine 20%) 4 ml INH RQ6 [facility] Last Admin: 02/10/17 13:11 Dose: 4 ml Al Hydrox/Mg Hydrox/Simethicone (Maalox 30 Ml) 30 ml PO TID PRN PRN Reason: Indigestion / Heartburn Last Admin: 02/06/17 13:23 Dose: 30 ml Albuterol/Ipratropium (Duoneb 3 Mg/0.5 Mg (3 Ml) Ud) 3 ml INH RQ6 [facility] Last Admin: 02/10/17 13:11 Dose: 3 ml Belladonna/Phenobarbital () 1 tab PO TID [facility] Last Admin: 02/10/17 14:19 Dose: 1 tab Fluconazole (Diflucan) 100 mg PO DAILY [facility] Last Admin: 02/10/17 10:32 Dose: 100 mg Guaifenesin (Robitussin) 200 mg PO Q4H PRN PRN Reason: Cough and congestion Last Admin: 02/09/17 05:52 Dose: 200 mg Hydrocortisone (Anusol-Hc) 0 gm TN BID [facility] Last Admin: 02/10/17 09:21 Dose: 1 applic Insulin Human Regular (Novolin R) 0 unit SC ACHS [facility] PRN Reason: Protocol Last Admin: 02/10/17 12:48 Dose: 3 unit Levothyroxine Sodium (Synthroid) 125 mcg PO DAILY@0630 [facility] Last Admin: 02/10/17 05:37 Dose: 125 mcg Loratadine (Claritin) 10 mg PO DAILY [facility] Last Admin: 02/10/17 09:20 Dose: 10 mg Metformin HCl (Glucophage) 850 mg PO BIDCC [facility] Last Admin: 02/07/17 09:44 Dose: 850 mg Methylprednisolone (Solu-Medrol) 40 mg IVP DAILY [facility] Last Admin: 02/10/17 09:21 Dose: 40 mg Montelukast Sodium (Singulair) 10 mg PO HS [facility] Last Admin: 02/09/17 22:14 Dose: 10 mg Pantoprazole Sodium (Protonix Ec Tab) 40 mg PO DAILY [facility] Last Admin: 02/10/17 09:20 Dose: 40 mg Promethazine HCl/Codeine (Phenergan/Codeine Oral Syrup) 10 ml PO Q8 [facility] Last Admin: 02/10/17 14:19 Dose: 10 ml Fluticasone/Salmeterol (Advair Diskus 250/50) 1 puff INH RQ12 [facility] Last Admin: 02/10/17 07:19 Dose: 1 puff - Labs Labs: 02/09/17 07:33 02/09/17 07:33 PT 20.4 SECONDS (9.7-12.2) H 02/07/17 13:51 INR 1.8 02/07/17 13:51 APTT 31 SECONDS (21-34) 02/07/17 13:51 - Constitutional Appears: Well, No Acute Distress - Respiratory Exam Respiratory Exam: Decreased Breath Sounds, NORMAL BREATHING PATTERN - Cardiovascular Exam Cardiovascular Exam: REGULAR RHYTHM, +S1, +S2 - GI/Abdominal Exam GI & Abdominal Exam: Soft, Normal Bowel Sounds - Neurological Exam Neurological Exam: Alert, Awake, Oriented x3 Assessment and Plan - Assessment and Plan (Free Text) Assessment: 76 yr old female admitted for sob/ exc. asthma spo2 _ 98% room air s/p EGD- LA grade candidiasis, esophagitis , acute gastritis ( see full report for details ) s/p colonoscopy- moderate colonic spasm CT- chest - 9 millimeter noncalcified nodule at the right middle lobe. 3-6 months follow-up reassessment is recommended. Mild cardiomegaly. Mild pulmonary vascular congestion.Gallstones without evidence of acute cholecystitis ,Mildly distended stomach and mild constipation. Otherwise no evidence of acute pathology in the abdomen and pelvis . DOPPLER LOWER EXTREMITIES- no evidence of DVT d/w Dr. Alexander, cleared for discharge home today and f/u with Dr. Portillo office in 1 wek CM contacted son , stated will come and pick her up. no transportation needed
--- NOTE | 2017-02-10 16:57 | PN ---
DATE: LOCATION: [facility], [facility]. SUBJECTIVE: This is a 76-year-old female seen and examined in rounds without significant clinical changes or reported active bleeding. Tolerating oral intake well. The patient still has intermittent periods of mild shortness of breath with coughing on exertion with less abdominal pain. No reported hematemesis. No chills, fever, or palpitation. The entire chart is reviewed including, but not limited to the most recent labs and radiology study results, current and previous medication list, current and previous medical events. Case discussed with the staff at length. The patient still has leukocytosis, but normal hemoglobin and hematocrit with low potassium with elevated blood glucose level to 168. Status post upper and lower endoscopy with pathology report of upper endoscopy negative for Helicobacter pylori infection. PHYSICAL EXAMINATION: GENERAL: A 76 years old female. VITAL SIGNS: Afebrile with pulse of 70, respiratory rate 20-22, and blood pressure of 124/68. HEENT: Showed pale, dry oral mucous membrane. Nonicteric sclera. LUNGS: Few scattered crepitation. Decreased air entry at bases. HEART: Positive S1 and S2. ABDOMEN: Soft. Bowel sounds are present. No mass or organomegaly. No rebound, tenderness or guarding. EXTREMITIES: Without significant edema, clubbing, or cyanosis. NEUROLOGIC: No reported neurological deficits, sensory or motor. IMPRESSION: 1. Peptic ulcer disease with gastritis. 2. Known history of rheumatoid arthritis, hypothyroidism, and diabetes mellitus. 3. Drug-induced coagulopathy. 4. Known history of deep venous thrombosis. 5. Left-sided colitis colonoscopy. 6. Duodenitis by recent upper endoscopy. 7. Esophageal varices, on Diflucan. SUGGESTIONS: 1. Continue current management. 2. Antireflux measures. 3. Sectional abdominal and pelvic CAT scan. 4. Further evaluation to follow. Liborio Nicole MD cc: Liborio Nicole MD
--- NOTE | 2017-02-10 18:03 | CP.PCM.PN ---
Subjective - Date & Time of Evaluation Date of Evaluation: 02/10/17 Time of Evaluation: 14:10 - Subjective Subjective: Pt seen and examined No events oevrnight Objective - Vital Signs/Intake and Output Vital Signs (last 24 hours): Temp Pulse Resp BP Pulse Ox 97.7 F 72 18 120/66 18 L 02/10/17 07:00 02/10/17 07:00 02/10/17 07:00 02/10/17 07:00 02/10/17 07:00 Intake and Output: 02/10/17 02/10/17 06:59 18:59 Intake Total 360 200 Balance 360 200 - Medications Medications: Current Medications Acetylcysteine (Acetylcysteine 20%) 4 ml INH RQ6 [facility] Last Admin: 02/10/17 13:11 Dose: 4 ml Al Hydrox/Mg Hydrox/Simethicone (Maalox 30 Ml) 30 ml PO TID PRN PRN Reason: Indigestion / Heartburn Last Admin: 02/06/17 13:23 Dose: 30 ml Albuterol/Ipratropium (Duoneb 3 Mg/0.5 Mg (3 Ml) Ud) 3 ml INH RQ6 [facility] Last Admin: 02/10/17 13:11 Dose: 3 ml Belladonna/Phenobarbital () 1 tab PO TID [facility] Last Admin: 02/10/17 17:28 Dose: 1 tab Fluconazole (Diflucan) 100 mg PO DAILY [facility] Last Admin: 02/10/17 10:32 Dose: 100 mg Guaifenesin (Robitussin) 200 mg PO Q4H PRN PRN Reason: Cough and congestion Last Admin: 02/09/17 05:52 Dose: 200 mg Hydrocortisone (Anusol-Hc) 0 gm SC BID [facility] Last Admin: 02/10/17 17:28 Dose: 1 applic Insulin Human Regular (Novolin R) 0 unit SC ACHS [facility] PRN Reason: Protocol Last Admin: 02/10/17 16:43 Dose: 6 unit Levothyroxine Sodium (Synthroid) 125 mcg PO DAILY@0630 [facility] Last Admin: 02/10/17 05:37 Dose: 125 mcg Loratadine (Claritin) 10 mg PO DAILY [facility] Last Admin: 02/10/17 09:20 Dose: 10 mg Metformin HCl (Glucophage) 850 mg PO BIDCC [facility] Last Admin: 02/07/17 09:44 Dose: 850 mg Methylprednisolone (Solu-Medrol) 40 mg IVP DAILY [facility] Last Admin: 02/10/17 09:21 Dose: 40 mg Montelukast Sodium (Singulair) 10 mg PO HS [facility] Last Admin: 02/09/17 22:14 Dose: 10 mg Pantoprazole Sodium (Protonix Ec Tab) 40 mg PO DAILY [facility] Last Admin: 02/10/17 09:20 Dose: 40 mg Promethazine HCl/Codeine (Phenergan/Codeine Oral Syrup) 10 ml PO Q8 [facility] Last Admin: 02/10/17 14:19 Dose: 10 ml Fluticasone/Salmeterol (Advair Diskus 250/50) 1 puff INH RQ12 [facility] Last Admin: 02/10/17 07:19 Dose: 1 puff - Labs Labs: 02/09/17 07:33 02/09/17 07:33 PT 20.4 SECONDS (9.7-12.2) H 02/07/17 13:51 INR 1.8 02/07/17 13:51 APTT 31 SECONDS (21-34) 02/07/17 13:51 - Head Exam Head Exam: NORMAL INSPECTION - Eye Exam Eye Exam: Normal appearance - ENT Exam ENT Exam: Mucous Membranes Moist - Respiratory Exam Respiratory Exam: Clear to Ausculation Bilateral - Cardiovascular Exam Cardiovascular Exam: REGULAR RHYTHM, +S1, +S2 - GI/Abdominal Exam GI & Abdominal Exam: Soft, Normal Bowel Sounds - Extremities Exam Extremities Exam: Normal Inspection Assessment and Plan - Assessment and Plan (Free Text) Assessment: Asthma Exacerbation Persistent Cough DM Hypothyroidism Improving slowly Continue Advair Bronchodilators O2 supplementation Steroids Promethazine with codeine DVT/GI prophalaxis
--- NOTE | 2017-02-10 22:18 | CP.PCM.DIS ---
Provider - Provider Date of Admission: 02/01/17 16:54 Attending physician: Byron Alexander MD Time Spent in preparation of Discharge (in minutes): 45 Diagnosis - Discharge Diagnosis (1) Degenerative joint disease Status: Acute (2) DVT (deep venous thrombosis) Status: Acute (3) Diabetes Status: Acute (4) Acute asthma exacerbation Status: Acute Hospital Course - Lab Results Lab Results: Micro Results 01/31/17 20:40 Blood Blood Culture - Final NO GROWTH AFTER 5 DAYS 01/31/17 20:40 Blood Gram Stain - Final TEST NOT PERFORMED 01/31/17 20:10 Blood Blood Culture - Final NO GROWTH AFTER 5 DAYS 01/31/17 20:10 Blood Gram Stain - Final TEST NOT PERFORMED Most Recent Lab Values WBC 18.7 K/uL (4.8-10.8) H D 02/09/17 07:33 RBC 4.43 Mil/uL (3.80-5.20) 02/09/17 07:33 Hgb 11.9 g/dL (11.0-16.0) 02/09/17 07:33 Hct 37.3 % (34.0-47.0) 02/09/17 07:33 MCV 84.2 fL (81.0-99.0) 02/09/17 07:33 MCH 26.9 pg (27.0-31.0) L 02/09/17 07:33 MCHC 31.9 g/dL (33.0-37.0) L 02/09/17 07:33 RDW 15.3 % (11.5-14.5) H 02/09/17 07:33 Plt Count 307 K/uL (130-400) 02/09/17 07:33 MPV 8.9 fL (7.2-11.7) 02/09/17 07:33 Neut % (Auto) 77.5 % (50.0-75.0) H 02/09/17 07:33 Lymph % (Auto) 14.6 % (20.0-40.0) L 02/09/17 07:33 [place] % (Auto) 6.7 % (0.0-10.0) 02/09/17 07:33 Eos % (Auto) 0.9 % (0.0-4.0) 02/09/17 07:33 Baso % (Auto) 0.3 % (0.0-2.0) 02/09/17 07:33 Neut # 14.5 K/uL (1.8-7.0) H 02/09/17 07:33 Lymph # 2.7 K/uL (1.0-4.3) 02/09/17 07:33 [place] # 1.2 K/uL (0.0-0.8) H 02/09/17 07:33 Eos # 0.2 K/uL (0.0-0.7) 02/09/17 07:33 Baso # 0.1 K/uL (0.0-0.2) 02/09/17 07:33 Neutrophils % (Manual) 50 % (50-75) 01/31/17 20:39 Band Neutrophils % 2 % (0-2) 01/31/17 20:39 Lymphocytes % (Manual) 19 % (20-40) L 01/31/17 20:39 Monocytes % (Manual) 6 % (0-10) 01/31/17 20:39 Eosinophils % (Manual) 23 % (0-4) H 01/31/17 20:39 Hypersegmented Polys Present 01/31/17 20:39 Smudge Cells Present 01/31/17 20:39 Toxic Granulation Present 01/31/17 20:39 Platelet Estimate Normal (NORMAL) 01/31/17 20:39 Large Platelets Present 01/31/17 20:39 Hypochromasia (manual) Slight 01/31/17 20:39 Poikilocytosis (manual Slight 01/31/17 20:39 Anisocytosis (manual) Slight 01/31/17 20:39 Microcytosis (manual) Slight 01/31/17 20:39 PT 20.4 SECONDS (9.7-12.2) H 02/07/17 13:51 INR 1.8 02/07/17 13:51 APTT 31 SECONDS (21-34) 02/07/17 13:51 Puncture Site Venous 02/01/17 18:15 pO2 42 mm/Hg (30-55) 02/01/17 18:15 Jair Test Na 02/01/17 18:15 VBG pH 7.38 (7.32-7.43) 02/01/17 18:15 VBG pCO2 43 mmHg (40-60) 02/01/17 18:15 VBG HCO3 24.4 mmol/L 02/01/17 18:15 VBG Total CO2 27.4 mmol/L (22-28) 01/31/17 20:40 VBG O2 Sat (Calc) 86.0 % (40-65) H 02/01/17 18:15 VBG Base Excess 0.0 mmol/L (0.0-2.0) 02/01/17 18:15 VBG Potassium 3.6 mmol/L (3.6-5.2) 01/31/17 20:40 Sodium 136.0 mmol/l (132-148) 01/31/17 20:40 Chloride 103.0 mmol/L (98-107) 01/31/17 20:40 Glucose 181 mg/dl (65-105) H 01/31/17 20:40 Lactate 1.7 mmol/L (0.7-2.1) 01/31/17 20:40 Sodium 137 mmol/L (132-148) 02/09/17 07:33 Potassium 3.4 mmol/L (3.6-5.2) L 02/09/17 07:33 Chloride 94 mmol/L (98-107) L 02/09/17 07:33 Carbon Dioxide 30 mmol/L (22-30) 02/09/17 07:33 Anion Gap 16 (10-20) 02/09/17 07:33 BUN 10 mg/dL (7-17) 02/09/17 07:33 Creatinine 0.5 MG/DL (0.7-1.2) L 02/09/17 07:33 Est GFR ( Amer) > 60 02/09/17 07:33 Est GFR (Non-Af Amer) > 60 02/09/17 07:33 POC Glucose (mg/dL) 411 mg/dL (65-110) H* 02/10/17 15:54 Random Glucose 98 mg/dL (65-105) 02/09/17 07:33 Calcium 9.0 mg/dl (8.6-10.4) 02/09/17 07:33 Total Bilirubin 0.5 mg/dL (0.2-1.3) 01/31/17 20:39 AST 16 U/L (14-36) 01/31/17 20:39 ALT 26 U/L (9-52) 01/31/17 20:39 Alkaline Phosphatase 52 U/L (38-126) 01/31/17 20:39 Total Protein 6.7 g/dL (6.3-8.3) 01/31/17 20:39 Albumin 3.8 g/dL (3.5-5.0) 01/31/17 20:39 Globulin 2.9 gm/dL (2.2-3.9) 01/31/17 20:39 Albumin/Globulin Ratio 1.3 (1.0-2.1) 01/31/17 20:39 Carcinoembryonic Ag 5.3 ng/mL (0-3.0) H 02/07/17 13:51 CA 19-9 Antigen 12.3 U/mL (0-37) 02/07/17 13:51 CA 125 Antigen 13.2 U/mL (0-35) 02/07/17 13:51 25-OH Vitamin D Total 23.8 NG/ML (30.0-100.0) L 02/04/17 07:10 Venous Blood Potassium 3.6 mmol/L (3.6-5.2) 01/31/17 20:40 Urine Color Straw (YELLOW) 01/31/17 20:48 Urine Clarity Clear (Clear) 01/31/17 20:48 Urine pH 6.0 (5.0-8.0) 01/31/17 20:48 Ur Specific [place] 1.003 (1.003-1.030) 01/31/17 20:48 Urine Protein Negative mg/dL (NEGATIVE) 01/31/17 20:48 Urine Glucose (UA) Normal mg/dL (Normal) 01/31/17 20:48 Urine Ketones Negative mg/dL (NEGATIVE) 01/31/17 20:48 Urine Blood Negative (NEGATIVE) 01/31/17 20:48 Urine Nitrate Negative (NEGATIVE) 01/31/17 20:48 Urine Bilirubin Negative (NEGATIVE) 01/31/17 20:48 Urine Urobilinogen Normal mg/dL (0.2-1.0) 01/31/17 20:48 Ur Leukocyte Esterase Neg [place]o/uL (Negative) 01/31/17 20:48 Urine RBC (Auto) < 1 /hpf (0-3) 01/31/17 20:48 Ur Squamous Epith Cells < 1 /hpf (0-5) 01/31/17 20:48 Urine Bacteria Rare (<OCC) 01/31/17 20:48 - Hospital Course Hospital Course: Pt seen and examined, is for dicsharge, less short of breath, less cough, is feeling better, Ct lungs shows nodules which seems benign 76 yr old female admitted for sob/ exc. asthma spo2 _ 98% room air s/p EGD- LA grade candidiasis, esophagitis , acute gastritis ( see full report for details ) s/p colonoscopy- moderate colonic spasm CT- chest - 9 millimeter noncalcified nodule at the right middle lobe. 3-6 months follow-up reassessment is recommended. Mild cardiomegaly. Mild pulmonary vascular congestion.Gallstones without evidence of acute cholecystitis ,Mildly distended stomach and mild constipation. Otherwise no evidence of acute pathology in the abdomen and pelvis . DOPPLER LOWER EXTREMITIES- no evidence of DVT cleared for discharge home today and f/u with me in office in 1 wek CM contacted son , stated will come and pick her up. no transportation needed Discharge Exam - Head Exam Head Exam: NORMAL INSPECTION Discharge Plan - Discharge Medications Prescriptions: Hydrocortisone 2.5% (Rectal) [Anusol-Hc] 1 gm ME BID #1 tube Dicyclomine [Dicyclomine HCl] 10 mg PO AC #30 cap Fluconazole [Diflucan] 100 mg PO DAILY #14 tab Promethazine/Codeine [Phenergan/Codeine Oral Syrup] 10 ml PO Q8 PRN #240 ml PRN Reason: Cough And Congestion - Follow Up Plan Condition: FAIR Disposition: HOME/ ROUTINE Instructions: Asthma (DC), Pneumonia (DC) Additional Instructions: please follow up with Dr. Alexander in the office in 1 week, continue medication as ordered. Referrals: Byron Alexander MD [Staff Provider] -
--- NOTE | 2017-02-12 02:08 | CON ---
DATE: 02/06/[address] Nicole to . I was called for the GI consultation by the admitting medical team. The patient is seen and fully examined in 02/06/2017 in the presence of her family members, her son as a ticket collector, as requested by the admitting medical staff. The entire chart is reviewed including but not limited to the most recent labs and radiology study results, current and previous medication list, current and previous medical events, allergies to medication list, as well as all the available current and previous medical records. Case discussed at length with staff in the floor, on 02/06/2017, about my consultation. HISTORY OF PRESENT ILLNESS: This is a 76 years old female was admitted to the hospital with multiple complaints including but not limited to intermittent periods of productive cough, generalized weakness, malaise, dyspepsia, nausea, and loss of appetite on and off with change of bowel movement recently. Never had colonoscopy before. No reported actual chest pain, palpitations, chills, fever, or significant shortness of breath. No reported active bleeding. PAST MEDICAL HISTORY: Including but not limited, 1. Rheumatoid arthritis. 2. Peptic ulcer disease. 3. Deep venous thrombosis. 4. Diabetes mellitus. 5. Hypothyroidism. SOCIAL HISTORY: No known history of cigarette smoking or alcohol intake. CURRENT MEDICATIONS: Medication list was reviewed. ALLERGIES TO MEDICATIONS: UNCLEAR. FAMILY HISTORY: Unknown. LABORATORY DATA: After being admitted to the hospital, initial blood workup showed leukocyte of 12,9, but normal hemoglobin and hematocrit, which subsequently dropped with increased blood glucose level, but normal liver function tests initially. Chest x-ray showed evidence of pneumonia. PHYSICAL EXAMINATION: GENERAL: A 76 years old female, awake, alert, oriented. She was seen by me. VITAL SIGNS: Afebrile. Pulse of 84, respiratory rate 20 to 22, and the blood pressure of 132/66. HEENT: Showed dry mildly pale oral mucosa membrane. Nonicteric sclerae. LYMPH NODES: No lymphadenitis or lymphadenopathy. LUNGS: Few scattered crepitation with few rhonchi bilaterally, but mainly in the left side. Breathing sounds are present. HEART: Positive S1 and S2. ABDOMEN: Soft with slight tension and generalized tenderness. No mass or organomegaly. No rebound tenderness or guarding. RECTAL: The patient refused. EXTREMITIES: Without significant clubbing, cyanosis, or edema. NEUROLOGICAL: No reported neurological deficit or sensory or motor. IMPRESSION: 1. Re-exacerbation of peptic ulcer disease. Rule out of gastric versus duodenal ulcers. 2. Change of bowel movement habit or unclear etiology with slight drop of hemoglobin and hematocrit, rule out occult gastrointestinal malignancy. 3. Multiple past medical history including but not limited to rheumatoid arthritis, deep venous thrombosis, diabetes mellitus, and status post hypothyroidism. SUGGESTIONS: 1. Agree with your plan. 2. Continue current management including IV antibiotics. This is a patient recently diagnosed with pneumonia, Flagyl may be added. 3. Guaiac positive stool . 4. Cancer makers including CEA. 5. Proton-pump inhibitors IV. 6. Endoscopic evaluation of the GI tract when the patient is more stable clinically. Thank you for letting me participate in your patient's care management. We will follow up closely with you. Liborio Nicole MD cc: Liborio Nicole MD
== END 2017-02-10 19:00 | disposition home health service (06) | DRG 190 ==
LOC: C.ER 19:32 → C.9E 21:38 → C.3T 02-01 02:27 → C.9E 02-01 02:45 → C.5S 02-01 13:20 → OBSVTOIN 02-01 16:54 → C.5S 02-01 21:30
PROVIDERS: ADMIT Internal Medicine; ATTEND Internal Medicine
PROC: 0DB68ZX Excision of Stomach, Via Natural or Artificial Opening Endoscopic, Diagnostic (ICD-10-PCS; 2017-02-08)
PROC: 0DBM8ZX Excision of Descending Colon, Via Natural or Artificial Opening Endoscopic, Diagnostic (ICD-10-PCS; principal; 2017-02-09 10:05)
DX: J44.0 Chronic obstructive pulmonary disease with (acute) lower respiratory infection (principal); J18.9 Pneumonia, unspecified organism; D69.3 Immune thrombocytopenic purpura; B37.81 Candidal esophagitis; D68.9 Coagulation defect, unspecified; I85.00 Esophageal varices without bleeding; I95.9 Hypotension, unspecified; E11.41 Type 2 diabetes mellitus with diabetic mononeuropathy; K51.50 Left sided colitis without complications; J44.1 Chronic obstructive pulmonary disease with (acute) exacerbation; E11.65 Type 2 diabetes mellitus with hyperglycemia; K29.00 Acute gastritis without bleeding; K29.80 Duodenitis without bleeding; M19.90 Unspecified osteoarthritis, unspecified site; D72.829 Elevated white blood cell count, unspecified; E03.9 Hypothyroidism, unspecified; K27.9 Peptic ulcer, site unspecified, unspecified as acute or chronic, without hemorrhage or perforation; K44.9 Diaphragmatic hernia without obstruction or gangrene; K80.20 Calculus of gallbladder without cholecystitis without obstruction; M06.9 Rheumatoid arthritis, unspecified; T45.515A Adverse effect of anticoagulants, initial encounter; Z86.718 Personal history of other venous thrombosis and embolism

== ENCOUNTER 2017-06-03 18:04 | Emergency (ER) | payer MEDICARE, MEDICAID ==
[2017-06-03 18:49] VITALS: BP 136/73; PULSE 79; RESP 20; TEMP 98.4; O2SAT 99
--- NOTE | 2017-06-03 19:10 | C.PDOC ---
History Of Present Illness 76 y/o female with a history of Diabetes, Hyperthyroidism, COPD, and DVT, presents to the ED complaining of pain and intermittent swelling of the left foot and ankle that radiates up the left leg, onset of 14 days ago. Patient reports pain resulted from twisting her ankle awkwardly when getting out of bed. Of note, patient does not ambulate often and INR has not been checked since February. hx dvt right leg, no cp or sob. PCP: Byron Alexander Time Seen by Provider: 06/03/17 18:54 Chief Complaint (Nursing): Lower Extremity Problem/Injury History Per: Patient History/Exam Limitations: no limitations Onset/Duration Of Symptoms: Days (14 days ago), Intermittent Episodes Current Symptoms Are (Timing): Still Present - Ankle/Foot Description Of Injury: Twisted Past Medical History Reviewed: Historical Data, Nursing Documentation, Vital Signs Vital Signs: Last Vital Signs Temp 98.4 F 06/03/17 18:44 Pulse 79 06/03/17 18:44 Resp 20 06/03/17 18:44 BP 136/73 06/03/17 18:44 Pulse Ox 99 06/04/17 21:54 - Medical History PMH: Arthritis, Asthma, COPD, Diabetes, Deep Vein Thrombosis, Hypothyroidism, Rheumatoid Arthritis Other Surgeries: Cataract Extraction - [facility] EXCISION OF DESCENDING COLON, ENDO, DIAGN (02/01/17) EXCISION OF STOMACH, ENDO, DIAGN (02/01/17) Family History: States: Unknown Family Hx - Social History Hx Tobacco Use: No Hx Alcohol Use: No Hx Substance Use: No - Immunization History Hx Tetanus Toxoid Vaccination: Yes Hx Influenza Vaccination: Yes Hx Pneumococcal Vaccination: Yes Review Of Systems Constitutional: Negative for: Fever Musculoskeletal: Positive for: Leg Pain, Foot Pain (foot and ankle pain along with swelling) Physical Exam - Physical Exam Appears: Non-toxic, No Acute Distress Skin: Normal Color, Warm Head: Atraumatic, Normacephalic Eye(s): bilateral: Normal Inspection Cardiovascular: Rhythm Regular, No Murmur Respiratory: Normal Breath Sounds, No Wheezing Extremity: Tenderness (to the 5th left metatarsal; left lateral malleolus tenderness), No Pedal Edema, Calf Tenderness (tender to left foot 5th metatarsal and left lateral malleolous, mild left calf tenderness, no swelling/ edema to calf noted. ) Pulses: Left Dorsalis Pedis: Normal, Right Dorsalis Pedis: Normal Neurological/Psych: Oriented x3, Normal Speech, Normal Cognition, Normal Motor, Normal Sensation ED Course And Treatment O2 Sat by Pulse Oximetry: 99 (RA) Pulse Ox Interpretation: Normal Medical Decision Making Medical Decision Making: Time: --19:11 Impression: --Left Foot and ankle pain, rule out fracture Plan: --PTT --Prothrombin Time --ED Obtain Labs --Ankle Left X-ray --Foot Left X-ray Reassess -- Scribe Attestation: Documented by Clifton Erazo acting as a scribe for ALVA Doyle. seen by podiatry resident and shane dressing applied. d/c with podiatry f/tidwell inr checked and is 1.0. pt sts she is taking medication, 2.5 mg per day. pt's son to make sure pt taking medication and f/u pmd in 2-3 days for repeat inr, discussed with Dr Alexander, pt to f/u this week. Disposition Discussed With .: Marcie Tijerina Doctor Will See Patient In The: Office Counseled Patient/Family Regarding: Studies Performed, Diagnosis, Need For Followup, Rx Given - Disposition Referrals: Marcie Tijerina DPM [Staff Provider] - Disposition: HOME/ ROUTINE Disposition Time: 20:51 Condition: STABLE Additional Instructions: Wear Shane dressing, keep clean and dry. Minimize the amount of weight bearing you do. Tylenol for pain. Call Dr Tijerina's office ([phone]) on Monday to make soonest appointment. You must take Warfarin as prescribed faithfully and follow up with Dr Alexander by the end of this week to check INR. Prescriptions: Acetaminophen [Tylenol 325mg tab] 650 mg PO Q6 #30 tab Instructions: Foot Fracture in Adults (ED) Forms: [facility] (Micronesian), General Discharge Instructions Print Language: EGYPTIAN - Clinical Impression Clinical Impression: Fracture of fifth metatarsal bone of left foot - Scribe Statement Scribe Attestation: Documented by Clifton Erazo acting as a scribe for ALVA Doyle.
[2017-06-03 19:47] LABS: PROTHROMBIN TIME 11.4 SECONDS (9.7-12.2)
--- NOTE | 2017-06-03 20:38 | CP.PCM.CON ---
History of Present Illness - History of Present Illness History of Present Illness: Podiatry consult note for Dr. Tijerina 76 year old female with PMHx including DM, hyperthyrodisim, RA, OA and DVT was seen at bedside with son regarding left foot pain. Patient states that two weeks ago she was getting out of bed and twisted her foot. She admits to pain on the outside of her foot and ankle. She has been soaking her foot in warm water with epsoms salts, and says that helps the swelling. Patient is mainly wheelchair bound, but uses a walker to get to the kitchen and bathroom. Denies any n/v/f/c/sob/cp. Past Patient History - Infectious Disease Hx of Infectious Diseases: None - Past Medical History & Family History Past Medical History?: Yes - Past Social History Smoking Status: Never Smoked - CARDIAC Hx Cardiac Disorders: Yes - PULMONARY Hx Asthma: Yes Hx Chronic Obstructive Pulmonary Disease (COPD): Yes - NEUROLOGICAL Other/Comment: Pinched Nerve - ENDOCRINE/METABOLIC Hx Hypothyroidism: Yes - HEMATOLOGICAL/ONCOLOGICAL Other/Comment: ITP - MUSCULOSKELETAL/RHEUMATOLOGICAL Hx Arthritis: Yes Hx Rheumatoid Arthritis: Yes - PSYCHIATRIC Hx Substance Use: No - SURGICAL HISTORY Hx Surgeries: Yes Hx Cataract Extraction: Yes - ANESTHESIA Hx Anesthesia: Yes Hx Anesthesia Reactions: No Meds Allergies/Adverse Reactions: Allergies Allergy/AdvReac Type Severity Reaction Status Date / Time No Known Allergies Allergy Verified 01/19/16 19:13 Physical Exam - Constitutional Appears: Well, Non-toxic, No Acute Distress - Extremities Exam Additional comments: Lower extremity focused exam: Vasc: DP pulses palpable 2/4 b/l, PT pulses non-palpable b/l, skin temperature warm to warm from proximal to distal b/l, non-pitting edema noted to left foot and ankle Derm:No open lesions noted. no ecchymosis noted. nails 1-10 are WNL for thickness and length Ortho:Tenderness on palpable to left 5th metatarsal base, tenderness on palpation to CFL and PTFL on the left ankle Neuro: Gross sensation diminished b/l - Neurological Exam Neurological exam: Alert - Psychiatric Exam Psychiatric exam: Normal Affect, Normal Mood Results - Vital Signs Recent Vital Signs: Last Vital Signs Temp 98.4 F 06/03/17 18:44 Pulse 79 06/03/17 18:44 Resp 20 06/03/17 18:44 BP 136/73 06/03/17 18:44 Pulse Ox 99 06/03/17 20:12 - Labs Labs: Laboratory Results - last 24 hr 06/03/17 19:36 PT 11.4 INR 1.0 APTT 33 Assessment & Plan - Assessment and Plan (Free Text) Assessment: 76 year old female with left 5th metatarsal base fracture and left ankle sprain Plan: patient examined and evaluated discussed in detail with attending, Dr. Tijerina labs, chart, vitals reviewed;afebrile, INR 1.0 radiographs reviewed: left 5th metatarsal base fracture noted left lower extremity dressed in modified shane compressive dressing and surgical shoe patient to remain non-WB to LLE as much as possible, use walker and wheelchair patient to keep dressing c/d/i until follow up RICE therapy patient to follow up with Dr. Tijerina in office on an our patient basis
--- NOTE | 2017-06-04 13:09 | RAD ---
PROCEDURE: Left Ankle Radiographs. HISTORY: twisted pain COMPARISON: None FINDINGS: BONES: Nondisplaced transverse fracture base of 5th metatarsal. No other fracture identified. Small plantar calcaneal spur. JOINTS: Normal. No osteoarthritis. Ankle mortise maintained. Talar dome intact SOFT TISSUES: Normal. OTHER FINDINGS: None. IMPRESSION: Nondisplaced transverse fracture at the base of the 5th metatarsal.
--- NOTE | 2017-06-04 13:10 | RAD ---
PROCEDURE: Left Foot Radiographs. HISTORY: 5th metatasral tender COMPARISON: None. FINDINGS: BONES: Nondisplaced transverse fracture base of 5th metatarsal. No other acute fracture. Pes planus deformity. Small plantar calcaneal spur. JOINTS: Normal. SOFT TISSUES: Normal. OTHER FINDINGS: None. IMPRESSION: Transverse nondisplaced fracture at the base of the 5th metatarsal.
== END 2017-06-03 21:26 | disposition home or self-care (01) ==
LOC: C.ER 18:04
DX: S92.352A Displaced fracture of fifth metatarsal bone, left foot, initial encounter for closed fracture (principal); S93.402A Sprain of unspecified ligament of left ankle, initial encounter; X50.1XXA Overexertion from prolonged static or awkward postures, initial encounter; Y92.003 Bedroom of unspecified non-institutional (private) residence as the place of occurrence of the external cause; E11.9 Type 2 diabetes mellitus without complications; Z86.718 Personal history of other venous thrombosis and embolism